=== PATIENT | female | born 1975 | race Hispanic/Latino ===

== ENCOUNTER 2017-05-17 10:12 | Emergency (ER) | payer MEDICAID ==
[2017-05-17 10:12] VITALS: BMI 19.4
[2017-05-17 10:40] VITALS: TEMP 98.2
[2017-05-17] MEDS ORDERED: Albuterol-Ipratrop 3 mg / 0.5 (3 ml) UD IH STA ×3 (11:12→12:08)
--- NOTE | 2017-05-17 11:17 | ED PDOC ---
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 Patient reports feeling weak shortness of breath and coughing up green phlegm. Patient also reports to have chest tightness and wheezing associated with shortness of breath. The SOB is worse at night and patient uses home nebulizer which provides symptomatic relief. Patient was last hospitalized in November 2016 for asthma exacerbation and was intubated once in 2013. Patient decided to come to the ED today due to intermittent shortness of breath. Patient denies having headache, fever, chills, chest pain, nausea, vomiting, diarrhea, urinary symptoms, or recent travels. (Rica Hodgson) Past Medical History - Provider Review Nursing Documentation Reviewed: Yes - Infectious Disease Hx of Infectious Diseases: None - Tetanus Immunization Tetanus Immunization: Unknown - Cardiac Hx Cardiac Disorders: No - Pulmonary Hx Asthma: Yes Hx Chronic Obstructive Pulmonary Disease (COPD): Yes - Neurological Hx Neurological Disorder: No - HEENT Hx HEENT Disorder: No - Renal Hx Renal Disorder: No - Endocrine/Metabolic Hx Endocrine Disorders: No - Hematological/Oncological Hx Blood Disorders: No - Integumentary Hx Dermatological Disorder: No - Musculoskeletal/Rheumatological Hx Musculoskeletal Disorders: No - Gastrointestinal Hx Gastrointestinal Disorders: No - Genitourinary/Gynecological Hx Genitourinary Disorders: No - Psychiatric Hx Psychophysiologic Disorder: No Hx Substance Use: Yes - Past Surgical History Past Surgical History: Unable to Obtain - Surgical History Hx Tonsillectomy: Yes Hx Tubal Ligation: Yes - Suicidal Assessment Feels Threatened In Home Enviroment: No Family/Social History - Physician Review Nursing Documentation Reviewed: Yes Family/Social History: Unknown Family HX Smoking Status: Light Smoker < 10 Cigarettes Daily Hx Alcohol Use: No Hx Substance Use: Yes Substance used: Herion two days ago Allergies/Home Meds Allergies/Adverse Reactions: Allergies azithromycin Allergy (Verified 05/17/17 10:40) RASH Penicillins Allergy (Verified 05/17/17 10:40) REDNESS Home Medications: Home Meds Medication Instructions Recorded Confirmed Methadone 85 mg PO DAILY 09/24/16 11/21/16 Review of Systems - Physician Review All systems were reviewed & negative as marked: Yes - Review of Systems Constitutional: Normal. absent: Fatigue, Fevers Eyes: Normal. absent: Vision Changes, Photophobia ENT: Normal. absent: Hearing Changes Respiratory: SOB, Cough, Sputum, Wheezing Cardiovascular: Normal. absent: Chest Pain, Palpitations, Syncope Gastrointestinal: Normal. absent: Abdominal Pain, Constipation, Diarrhea, Nausea, Vomiting Musculoskeletal: Normal. absent: Back Pain, Neck Pain Skin: Normal. absent: Rash, Pruritis, Skin Lesions Neurological: Normal. absent: Headache, Dizziness Endocrine: Normal. absent: Diaphoresis, Polyuria Hemo/Lymphatic: Normal Psychiatric: Normal. absent: Anxiety, Depression Physical Exam Vital Signs Reviewed: Yes Temperature: Afebrile Blood Pressure: Normal Pulse: Regular Respiratory Rate: Normal Appearance: Positive for: Well-Appearing, Non-Toxic, Comfortable Pain Distress: None Mental Status: Positive for: Alert and Oriented X 3 - Systems Exam Head: Present: Atraumatic, Normocephalic Pupils: Present: PERRL Extroacular Muscles: Present: EOMI Conjunctiva: Present: Normal Mouth: Present: Moist Mucous Membranes Neck: Present: Normal Range of Motion Respiratory/Chest: Present: Wheezes (bilateral upper lung de leon). No: Respiratory Distress, Accessory Muscle Use Cardiovascular: Present: Regular Rate and Rhythm, Normal S1, S2. No: Murmurs Abdomen: Present: Normal Bowel Sounds. No: Tenderness, Distention, Peritoneal Signs Back: Present: Normal Inspection Upper Extremity: Present: Normal Inspection, NORMAL PULSES, Neurovascularly Intact. No: Cyanosis, Edema Lower Extremity: Present: Normal Inspection, NORMAL PULSES, Neurovascularly Intact. No: Edema Neurological: Present: GCS=15, CN II-XII Intact, Speech Normal Skin: Present: Warm, Dry, Normal Color. No: Rashes Psychiatric: Present: Alert, Oriented x 3, Normal Insight, Normal Concentration Medical Decision Making Re-evaluation Time: 13:06 Reassessment Condition: Improved ED Course and Treatment: 05/17/17 12:06 -Duoneb -Solu-medrol -CXR -CBC, CMP DDx: Asthma exacerbation, bronchitis, PNA 05/17/17 11:30 CXR revealed no active disease 05/17/17 13:06 Patient finished 2nd duoneb treatment. Denies shortness of breath, wheezing, chest tightness or palpitations. 05/17/17 13:16 41 year old female with history of asthma presents with shortness of breath was treated with solu-medrol and duonebs. Patient's symptoms resolved after treatments. Labs and CXR reviewed. Patient was instructed to quit smoking and will be discharged on oral prednisone. (Rica Hodgson) Seen and examined with resident. 41 year old F c Past medical history asthma p/ w shortness of breath similar to asthma that began with cold like symptoms. Wheezing diffusely on exam, no respiratory distress. (Kin Avalos) - Lab Interpretations Lab Results: 05/17/17 11:30 05/17/17 11:30 Lab Results 05/17/17 11:30: Sodium 139, Potassium 4.6, Chloride 106, Carbon Dioxide 22, Anion Gap 16, BUN 15, Creatinine 0.8, Est GFR ( Amer) > 60, Est GFR (Non- Af Amer) > 60, Random Glucose 76, Calcium 9.5, Total Bilirubin 0.6, AST 44 H, ALT 60 H, Alkaline Phosphatase 78, Total Protein 8.4 H, Albumin 4.5, Globulin 3.9, Albumin/Globulin Ratio 1.2 05/17/17 11:30: WBC 5.2, RBC 4.66, Hgb 13.5, Hct 39.3, MCV 84.3, MCH 29.0, MCHC 34.4, RDW 13.9, Plt Count 205, MPV 10.9, Gran % 64.4, Lymph % (Auto) 23.8, [place] % (Auto) 5.8, Eos % (Auto) 5.6 H, Baso % (Auto) 0.4, Gran # 3.32, Lymph # 1.2, [place] # 0.3, Eos # 0.3, Baso # 0.02 - RAD Interpretation Radiology Orders: 05/17/17 11:23 CHEST TWO VIEWS (PA/LAT) [RAD] Stat - Medication Orders Current Medication Orders: Discontinued Medications Albuterol/Ipratropium (Duoneb 3 Mg/0.5 Mg (3 Ml) Ud) 3 ml IH STAT STA Stop: 05/17/17 11:13 Last Admin: 05/17/17 11:32 Dose: 3 ml Albuterol/Ipratropium (Duoneb 3 Mg/0.5 Mg (3 Ml) Ud) 3 ml IH STAT STA Stop: 05/17/17 12:09 Last Admin: 05/17/17 12:10 Dose: 3 ml Albuterol/Ipratropium (Duoneb 3 Mg/0.5 Mg (3 Ml) Ud) 3 ml IH STAT STA Stop: 05/17/17 12:09 Last Admin: 05/17/17 12:22 Dose: 3 ml Methylprednisolone (Solu-Medrol) 125 mg IVP STAT STA Stop: 05/17/17 11:14 Last Admin: 05/17/17 11:32 Dose: 125 mg - PA / PATROL LADY / Resident Statement /DO has reviewed & agrees with the documentation as recorded. MD/ has examined the patient and agrees with the treatment plan. Disposition/Present on Arrival - Present on Arrival Any Indicators Present on Arrival: No History of DVT/PE: No History of Uncontrolled Diabetes: No Urinary Catheter: No History of Decub. Ulcer: No History Surgical Site Infection Following: None - Disposition Have Diagnosis and Disposition been Completed?: Yes Disposition Time: 13:09 Patient Plan: Discharge - Disposition Diagnosis: Asthma exacerbation Disposition: HOME/ ROUTINE Patient Problems: Current Active Problems Problem Status Onset Asthma exacerbation Acute Condition: GOOD Discharge Instructions (ExitCare): Asthma (ED) Additional Instructions: Arelis Meehan, thank you for letting us take care of you today. Your provider was Dr. Avalos. You were treated for asthma exacerbation. The emergency medical care you received today was directed at your acute symptoms. If you were prescribed any medication, please fill it and take as directed. It may take several days for your symptoms to resolve. Return to the Emergency Department if your symptoms worsen, do not improve, or if you have any other problems. Please contact your doctor or call one of the physicians/clinics you have been referred to that are listed on the Patient Visit Information form that is included in your discharge packet. Bring any paperwork you were given at discharge with you along with any medications you are taking to your follow up visit. Our treatment cannot replace ongoing medical care by a primary care provider (PCP) outside of the emergency department. Thank you for allowing the [facility] team to be part of your care today. Prescriptions: predniSONE [Prednisone] 60 mg PO DAILY 5 Days Referrals: PCP,NO [Primary Care Provider] - Follow up with primary Forms: WORK NOTE
--- NOTE | 2017-05-17 11:25 | ED PDOC ---
Arrival/HPI - General Chief Complaint: Cough, Cold, Congestion Time Seen by Provider: 05/17/17 10:39 Historian: Patient Past Medical History - Infectious Disease Hx of Infectious Diseases: None - Tetanus Immunization Tetanus Immunization: Unknown - Cardiac Hx Cardiac Disorders: No - Pulmonary Hx Asthma: Yes Hx Chronic Obstructive Pulmonary Disease (COPD): Yes - Neurological Hx Neurological Disorder: No - HEENT Hx HEENT Disorder: No - Renal Hx Renal Disorder: No - Endocrine/Metabolic Hx Endocrine Disorders: No - Hematological/Oncological Hx Blood Disorders: No - Integumentary Hx Dermatological Disorder: No - Musculoskeletal/Rheumatological Hx Musculoskeletal Disorders: No - Gastrointestinal Hx Gastrointestinal Disorders: No - Genitourinary/Gynecological Hx Genitourinary Disorders: No - Psychiatric Hx Psychophysiologic Disorder: No Hx Substance Use: Yes - Past Surgical History Past Surgical History: Unable to Obtain - Surgical History Hx Tonsillectomy: Yes Hx Tubal Ligation: Yes - Suicidal Assessment Feels Threatened In Home Enviroment: No Family/Social History Smoking Status: Light Smoker < 10 Cigarettes Daily Hx Alcohol Use: No Hx Substance Use: Yes Substance used: Herion two days ago Allergies/Home Meds Allergies/Adverse Reactions: Allergies azithromycin Allergy (Verified 05/17/17 10:40) RASH Penicillins Allergy (Verified 05/17/17 10:40) REDNESS Home Medications: Home Meds Medication Instructions Recorded Confirmed Methadone 85 mg PO DAILY 09/24/16 11/21/16 Physical Exam Vital Signs Temp Pulse Resp BP Pulse Ox 05/17/17 10:36 98.2 F 96 H 16 121/81 95 Medical Decision Making - RAD Interpretation Radiology Orders: 05/17/17 11:23 CHEST TWO VIEWS (PA/LAT) [RAD] Stat - Medication Orders Current Medication Orders: Discontinued Medications Albuterol/Ipratropium (Duoneb 3 Mg/0.5 Mg (3 Ml) Ud) 3 ml IH STAT STA Stop: 05/17/17 11:13 Methylprednisolone (Solu-Medrol) 125 mg IVP STAT STA Stop: 05/17/17 11:14 Disposition/Present on Arrival - Present on Arrival History of DVT/PE: No History of Uncontrolled Diabetes: No Urinary Catheter: No History of Decub. Ulcer: No History Surgical Site Infection Following: None - Disposition Referrals: PCP,NO [Primary Care Provider] - Follow up with primary
[2017-05-17 11:49] LABS: BASO # 0.02 K/mm3 (0.0-2.0); BASO % 0.4 % (0.0-3.0); EOS # 0.3 (0.0-0.7); EOS % 5.6 % (1.5-5.0); GRAN # 3.32 (1.4-6.5); GRAN % 64.4 % (50.0-68.0); HEMOGLOBIN 13.5 gm/dL (12.0-16.0); LYMPH # 1.2 (1.2-3.4); LYMPH % 23.8 % (22.0-35.0); MEAN CELL VOLUME 84.3 fL (80.0-105.0); MEAN CORPUSCULAR HGB CONC 34.4 g/dl (31.0-37.0); MEAN PLATELET VOLUME 10.9 fl (7.0-11.0); MONO # 0.3 (0.1-0.6); MONO % 5.8 % (1.0-6.0); PLATELET COUNT 205 10^3/uL (120.0-450.0); RBC 4.66 10^6/uL (3.5-6.1); RED CELL DISTRIBUTION WIDTH 13.9 % (11.5-14.5); WHITE BLOOD COUNT 5.2 10^3/ul (4.5-11.0)
[2017-05-17 11:59] LABS: ALB/GLOB RATIO 1.2 (1.1-1.8); ALBUMIN 4.5 g/dL (3.0-4.8); ALT/SGPT 60 U/L (7-56); AST/SGOT 44 U/L (15-39); BLOOD UREA NITROGEN 15 mg/dL (7-21); CALCIUM 9.5 mg/dL (8.4-10.5); GFR AFRICAN-AMERICAN > 60; GFR NON-AFRICAN AMERICAN > 60
--- NOTE | 2017-05-17 12:13 | RAD ---
HISTORY: shortness of breath COMPARISON: 11/21/2016 TECHNIQUE: Chest PA and lateral FINDINGS: LUNGS: No active pulmonary disease. PLEURA: No significant pleural effusion identified. No pneumothorax apparent. CARDIOVASCULAR: Normal. OSSEOUS STRUCTURES: No significant abnormalities. VISUALIZED UPPER ABDOMEN: Normal. OTHER FINDINGS: None. IMPRESSION: No active disease.
[2017-05-17 12:16] VITALS: RESP 18
[2017-05-17 13:48] VITALS: BP 122/68; PULSE 78; O2SAT 98
== END 2017-05-17 13:50 | disposition home or self-care (01) ==
LOC: ED 10:12
DX: J45.901 Unspecified asthma with (acute) exacerbation (principal); Z72.0 Tobacco use
CPT/HCPCS: 71020; 80053; 85025; 96374; 99283; J2930

== ENCOUNTER 2017-06-24 19:49 | Emergency (ER) | payer MEDICAID ==
[2017-06-24 19:50] VITALS: BMI 19.4
[2017-06-24 20:09] VITALS: TEMP 98.5
[2017-06-24] MEDS ORDERED: levoFLOXacin 750 mg in D5W 750 MG/150 ML BAG IVPB STA (20:22)
--- NOTE | 2017-06-24 20:26 | ED PDOC ---
Arrival/HPI <Adal Barrios - Last Filed: 06/24/17 22:03> - History of Present Illness Time/Duration: < week Symptom Onset: Gradual Symptom Course: Improving Context: Other <Nina Hewitt - Last Filed: 06/24/17 22:35> - General Chief Complaint: Upper Extremity Problem/Injury Time Seen by Provider: 06/24/17 19:55 - History of Present Illness Narrative History of Present Illness (Text): 06/24/17 20:21 61 year old female with past medical history of IVDA, asthma, hepatitis C presents for right arm anticubital fossa infection. Patient states that she injects heroin into the right antecubital fossa site. She noticed a raised area at site of injection about 5 days ago. Patient states that area is nontender. She denies having any F/C. Patient has injected in the same site even after she noticed that area was becoming raised. Patient states that some of the swelling decreased. Her last use of IVD was earlier today. patient denie shaving any CP, SOB, abd pain, hand pain. (Nina Hewitt) Past Medical History - Provider Review Nursing Documentation Reviewed: Yes - Travel History Have you recently traveled outside [place] w/in the past 3 mons?: No - Infectious Disease Hx of Infectious Diseases: None - Tetanus Immunization Tetanus Immunization: Unknown - Reproductive Menopause: No - Cardiac Hx Cardiac Disorders: No - Pulmonary Hx Respiratory Disorders: Yes Hx Asthma: Yes Hx Chronic Obstructive Pulmonary Disease (COPD): Yes - Neurological Hx Neurological Disorder: No - HEENT Hx HEENT Disorder: No - Renal Hx Renal Disorder: No - Endocrine/Metabolic Hx Endocrine Disorders: No - Hematological/Oncological Hx Blood Disorders: Yes Hx Hepatitis C: Yes - Integumentary Hx Dermatological Disorder: No - Musculoskeletal/Rheumatological Hx Musculoskeletal Disorders: No - Gastrointestinal Hx Gastrointestinal Disorders: No - Genitourinary/Gynecological Hx Genitourinary Disorders: No - Psychiatric Hx Psychophysiologic Disorder: No Hx Substance Use: Yes - Past Surgical History Past Surgical History: Unable to Obtain - Surgical History Hx Tonsillectomy: Yes Hx Tubal Ligation: Yes - Anesthesia Hx Anesthesia: Yes Hx Anesthesia Reactions: No Hx Malignant Hyperthermia: No - Suicidal Assessment Feels Threatened In Home Enviroment: No <Nina Hewitt - Last Filed: 06/24/17 22:35> Family/Social History - Physician Review Nursing Documentation Reviewed: Yes Family/Social History: Unknown Family HX Smoking Status: Heavy Smoker > 10 Cigarettes Daily Hx Alcohol Use: No Hx Substance Use: Yes Substance used: Heroin & Cocaine today; IV drug abuser <Nina eHwitt - Last Filed: 06/24/17 22:35> Allergies/Home Meds <SophieAdal - Last Filed: 06/24/17 22:03> <Nina Hewitt - Last Filed: 06/24/17 22:35> Allergies/Adverse Reactions: Allergies azithromycin Allergy (Verified 05/17/17 10:40) RASH Penicillins Allergy (Verified 05/17/17 10:40) REDNESS Home Medications: Home Meds Medication Instructions Recorded Confirmed Methadone 85 mg PO DAILY 09/24/16 11/21/16 Review of Systems - Review of Systems Constitutional: Normal. absent: Fatigue, Fevers, Night Sweats Eyes: Normal. absent: Vision Changes, Eye Pain ENT: Normal. absent: Hearing Changes, Sore Throat, Rhinorrhea, Sinus Congestion Respiratory: Normal. absent: SOB, Cough, Sputum, Wheezing Cardiovascular: Normal. absent: Chest Pain, Palpitations, Edema, Calf Pain Gastrointestinal: Normal. absent: Abdominal Pain, Constipation, Diarrhea, Nausea, Vomiting Genitourinary Female: Normal. absent: Dysuria, Frequency, Hematuria Musculoskeletal: Normal. absent: Arthralgias, Back Pain, Neck Pain Skin: Other (raised area in right AC ). absent: Rash, Pruritis, Skin Lesions, Laceration Neurological: Normal. absent: Headache, Dizziness Endocrine: Normal. absent: Diaphoresis Hemo/Lymphatic: Normal. absent: Adenopathy, Easy Bleeding <Nina Hewitt - Last Filed: 06/24/17 22:35> Physical Exam Temperature: Afebrile Blood Pressure: Normal Pulse: Tachycardic Respiratory Rate: Normal Appearance: Positive for: Well-Appearing, Non-Toxic, Comfortable Pain Distress: None Mental Status: Positive for: Alert and Oriented X 3 - Systems Exam Head: Present: Atraumatic, Normocephalic Extroacular Muscles: Present: EOMI Mouth: Present: Moist Mucous Membranes. No: Dry Respiratory/Chest: Present: Clear to Auscultation, Good Air Exchange. No: Respiratory Distress, Accessory Muscle Use, Wheezes, Rales, Rhonchi Cardiovascular: Present: Regular Rate and Rhythm, Normal S1, S2. No: Murmurs, Rub, Gallop, Muffled Abdomen: Present: Normal Bowel Sounds. No: Tenderness, Distention, Peritoneal Signs, Guarding Upper Extremity: Present: Normal ROM, NORMAL PULSES. No: Cyanosis, Edema Lower Extremity: No: Edema, CALF TENDERNESS Skin: Present: Warm, Dry, Normal Color, Other (right arm AC fossa has small raised, indurated area with track nahomy noted. no erythema, nontender. ). No: Rashes Psychiatric: Present: Alert, Oriented x 3, Normal Insight, Normal Concentration <KarjennifferNina - Last Filed: 06/24/17 22:35> Vital Signs Temp Pulse Resp BP Pulse Ox 06/24/17 22:30 96 H 16 110/71 95 06/24/17 20:03 98.5 F 129 H 19 133/84 98 Medical Decision Making - EKG Interpretation Interpreted by ED Physician: Yes Type: 12 lead EKG <Adal Barrois - Last Filed: 06/24/17 22:03> - Lab Interpretations I have reviewed the lab results: Yes Interpretation: All labs normal - EKG Interpretation Interpreted by ED Physician: Yes Type: 12 lead EKG <Amn Marcelinaa - Last Filed: 06/24/17 22:35> ED Course and Treatment: Impression: Pt seen and evaluated with medical territory manager. Pt, whose past medical history includes IVDA, asthma, and hepatitis C, presented for right antecubital fossa. Pt regularly injects heroin at the site. Aware and agree with HPI, clinical findings, plan, and management. Plan: -- EKG -- Labs -- Levaquin -- Reassess and disposition (Adal Barrios) 06/24/17 20:29 41 y/o F presents for right AC fossa swelling. Patient is noted to be tachy in ED. Patient is afebrile. Will check CBC, BMP, EKG Patient will receive 1 dose of levaquin IV 750 mg 06/24/17 22:06 Normal WBC count. Patient will be given referral for general surgery for follow up. (KarimNina) - Lab Interpretations Narrative Lab Interpretation (Text): 06/24/17 22:06 normal WBC count (Karim,Nina) Lab Results: 06/24/17 20:35 06/24/17 20:35 Lab Results 06/24/17 20:35: Sodium 138, Potassium 3.5 L, Chloride 105, Carbon Dioxide 22, Anion Gap 15, BUN 12, Creatinine 0.8, Est GFR ( Amer) > 60, Est GFR (Non- Af Amer) > 60, Random Glucose 115 H, Calcium 9.1 06/24/17 20:35: WBC 4.4 L, RBC 4.50, Hgb 13.0, Hct 37.7, MCV 83.8, MCH 28.9, MCHC 34.5, RDW 13.8, Plt Count 226, MPV 10.8 - EKG Interpretation EKG Interpretation (Text): 06/24/17 20:36 NSR with HR of 107. No ST changes, normal intervals and normal axis. 06/24/17 20:39 No changes noted from EKG from 09/2014 (Nina Hewitt) - Medication Orders Current Medication Orders: Discontinued Medications Levofloxacin/Dextrose (Levaquin 750mg) 750 mg in 150 mls @ 100 mls/hr IVPB STAT STA Stop: 06/24/17 21:51 Last Admin: 06/24/17 20:49 Dose: 100 mls/hr Potassium Chloride (K-Dur 20 Meq Er Tab) 20 meq PO STAT STA Stop: 06/24/17 22:06 Last Admin: 06/24/17 22:21 Dose: 20 meq - PA / WORKPLACE RELATIONS ADVISER / Resident Statement MUSA has reviewed & agrees with the documentation as recorded. MUSA has examined the patient and agrees with the treatment plan. <Adal Barrios - Last Filed: 06/24/17 22:03> Disposition/Present on Arrival <Adal Barrios - Last Filed: 06/24/17 22:03> - Present on Arrival Any Indicators Present on Arrival: No History of DVT/PE: No History of Uncontrolled Diabetes: No Urinary Catheter: No History of Decub. Ulcer: No History Surgical Site Infection Following: Obstetrical/Gynecological Surgery - Disposition Have Diagnosis and Disposition been Completed?: Yes Disposition Time: 22:05 Patient Plan: Discharge <Nina Hewitt - Last Filed: 06/24/17 22:35> - Disposition Diagnosis: Skin swelling Disposition: HOME/ ROUTINE Patient Problems: Current Active Problems Problem Status Onset Skin swelling Acute Condition: GOOD Additional Instructions: Arelis Meehan, thank you for letting us take care of you today. Your provider was Dr. Nina Hewitt. You were treated for skin swelling. The emergency medical care you received today was directed at your acute symptoms. If you were prescribed any medication, please fill it and take as directed. It may take several days for your symptoms to resolve. Return to the Emergency Department if your symptoms worsen, do not improve, or if you have any other problems. Please contact your doctor or call one of the physicians/clinics you have been referred to that are listed on the Patient Visit Information form that is included in your discharge packet. Bring any paperwork you were given at discharge with you along with any medications you are taking to your follow up visit. Our treatment cannot replace ongoing medical care by a primary care provider (PCP) outside of the emergency department. Thank you for allowing the [facility] team to be part of your care today. If you had an X-Ray or CT scan: A Radiologist will review the ED reading if any change in treatment is needed we will contact you. If you had a blood, urine, or wound culture: It will take several days for the results, if any change in treatment is needed we will contact you. If you had an STI test: It will take 48 hours for the results. Please call after 1 week if you have not heard back. Prescriptions: Levofloxacin [Levaquin] 500 mg PO DAILY #7 tablet Referrals: Chasidy Macdonald MD [Staff Provider] - Follow up with primary Forms: [employer] (Czech)
[2017-06-24 20:58] LABS: MEAN CELL VOLUME 83.8 fl (80.0-105.0); MEAN CORPUSCULAR HEMOGLOBIN 28.9 pg (25.0-35.0); MEAN CORPUSCULAR HGB CONC 34.5 g/dl (31.0-37.0); MEAN PLATELET VOLUME 10.8 fl (7.0-11.0); RBC 4.5 10^6/uL (3.5-6.1); RED CELL DISTRIBUTION WIDTH 13.8 % (11.5-14.5); WHITE BLOOD COUNT 4.4 10^3/ul (4.5-11.0)
[2017-06-24 21:44] LABS: BLOOD UREA NITROGEN 12 mg/dL (7-21); CALCIUM 9.1 mg/dL (8.4-10.5); GFR AFRICAN-AMERICAN > 60; GFR NON-AFRICAN AMERICAN > 60
[2017-06-24] MEDS ORDERED: Potassium Chloride 20 mEq ER Tab PO STA (22:05)
[2017-06-24 22:31] VITALS: BP 110/71; PULSE 96; RESP 16; O2SAT 95
--- NOTE | 2017-06-25 13:59 | CARD ---
APPROVED REPORT EKG Measurement Heart [id number] <Conclusion> Sinus tachycardia Possible Left atrial enlargement Incomplete right bundle branch block Borderline ECG
== END 2017-06-24 22:32 | disposition home or self-care (01) ==
LOC: ED 19:49
DX: M79.89 Other specified soft tissue disorders (principal); F19.10 Other psychoactive substance abuse, uncomplicated; J45.909 Unspecified asthma, uncomplicated; F17.210 Nicotine dependence, cigarettes, uncomplicated

== ENCOUNTER 2017-10-06 02:35 | Emergency (ER) | payer MEDICAID ==
[2017-10-06 02:35] VITALS: BMI 19.4
[2017-10-06 02:52] VITALS: TEMP 99.6
--- NOTE | 2017-10-06 02:53 | ED PDOC ---
Arrival/HPI - General Chief Complaint: Back Pain Time Seen by Provider: 10/06/17 02:42 Historian: Patient - History of Present Illness Narrative History of Present Illness (Text): 10/06/17 02:45 41 year old female, whose past medical history includes, IVDA, asthma, and hepatitis C, presents to the emergency department complaining of right rib pain associated with chest pain on exertion and trouble breathing for the past 4 days. Patient describes the pain as a sharp pain that worsens when laying down and has relief when sitting up. She reports vomiting on the first day. Patient admits to smoking and use of heroine (last use 10 hours ago), but denies any injuries, fever, chills, cough, sinus congestion, nausea, diarrhea, urinary symptoms, edema, back pain, neck pain, headache, dizziness, or any other complaints. Time/Duration: Other (4 days ) Symptom Onset: Gradual Symptom Course: Worsening Quality: Stabbing Activities at Onset: Light Context: Home Past Medical History - Provider Review Nursing Documentation Reviewed: Yes - Infectious Disease Hx of Infectious Diseases: None - Tetanus Immunization Tetanus Immunization: Unknown - Cardiac Hx Cardiac Disorders: No - Pulmonary Hx Respiratory Disorders: Yes Hx Asthma: Yes Hx Chronic Obstructive Pulmonary Disease (COPD): Yes - Neurological Hx Neurological Disorder: No - HEENT Hx HEENT Disorder: No - Renal Hx Renal Disorder: No - Endocrine/Metabolic Hx Endocrine Disorders: No - Hematological/Oncological Hx Blood Disorders: Yes Hx Hepatitis C: Yes - Integumentary Hx Dermatological Disorder: No - Musculoskeletal/Rheumatological Hx Musculoskeletal Disorders: No - Gastrointestinal Hx Gastrointestinal Disorders: No - Genitourinary/Gynecological Hx Genitourinary Disorders: No - Psychiatric Hx Psychophysiologic Disorder: No Hx Substance Use: Yes - Past Surgical History Past Surgical History: Unable to Obtain - Surgical History Hx Tonsillectomy: Yes Hx Tubal Ligation: Yes - Anesthesia Hx Anesthesia: Yes Hx Anesthesia Reactions: No Hx Malignant Hyperthermia: No - Suicidal Assessment Feels Threatened In Home Enviroment: No Family/Social History - Physician Review Nursing Documentation Reviewed: Yes Family/Social History: No Known Family HX Smoking Status: Light Smoker < 10 Cigarettes Daily Hx Alcohol Use: No Hx Substance Use: Yes Substance used: Heroin.last used at 1700 10/05/2017; IV drug abuser Allergies/Home Meds Allergies/Adverse Reactions: Allergies azithromycin Allergy (Verified 10/06/17 02:45) RASH Penicillins Allergy (Verified 10/06/17 02:45) REDNESS Home Medications: Home Meds Medication Instructions Recorded Confirmed Albuterol HFA [Ventolin HFA 90 2 puff IH [id number] 10/06/17 10/06/17 mcg/actuation (8 g)] Review of Systems - Physician Review All systems were reviewed & negative as marked: Yes - Review of Systems Constitutional: absent: Fevers, Other (Chills) ENT: absent: Sinus Congestion Respiratory: absent: Cough Cardiovascular: Chest Pain (chest pain on exeration), Other (trouble breathing) Gastrointestinal: Vomiting. absent: Diarrhea, Nausea Genitourinary Female: absent: Dysuria, Frequency, Hematuria Musculoskeletal: absent: Back Pain, Neck Pain, Other (edema) Neurological: absent: Headache, Dizziness Physical Exam Vital Signs Temp Pulse Resp BP Pulse Ox 10/06/17 04:31 97 H 16 104/60 97 10/06/17 02:51 99.6 F 10/06/17 02:42 98.9 F 105 H 18 111/59 L 100 10/06/17 02:40 98.9 F Temperature: Afebrile Blood Pressure: Normal Pulse: Tachycardic Respiratory Rate: Normal Appearance: Positive for: Well-Appearing, Non-Toxic Pain Distress: Mild Mental Status: Positive for: Alert and Oriented X 3 - Systems Exam Head: Present: Atraumatic, Normocephalic Pupils: Present: PERRL Conjunctiva: Present: Normal Mouth: Present: Dry Pharnyx: Present: Normal. No: ERYTHEMA, EXUDATE Neck: Present: Normal Range of Motion Respiratory/Chest: Present: Clear to Auscultation, Good Air Exchange. No: Respiratory Distress, Accessory Muscle Use Cardiovascular: Present: Regular Rate and Rhythm, Normal S1, S2. No: Murmurs Abdomen: Present: Normal Bowel Sounds. No: Tenderness, Distention, Peritoneal Signs Back: Present: Normal Inspection Upper Extremity: Present: Tenderness (Mild tenderness to palpation on lower anterior ribs). No: Cyanosis, Edema Lower Extremity: Present: Normal Inspection. No: Edema Neurological: Present: GCS=15, CN II-XII Intact, Speech Normal Skin: Present: Warm, Dry, Normal Color. No: Rashes Psychiatric: Present: Alert, Oriented x 3, Normal Insight, Normal Concentration Medical Decision Making ED Course and Treatment: 10/06/17 02:45 Impression: 41 year old female presents complaining of right sided rib pain associated with chest pain on exertion and trouble breathing. Patient hx of IVDA and asthma. Plan: -- EKG -- Labs -- Chest X-ray 2 Views -- Urinalysis -- Reassess and disposition Prior Visits: Notes and results from previous visits were reviewed. Patient was last seen in the emergency department on 05/17/17 presents complaining of shortness of breath and not feeling well. Progress Notes: EKG shows NSR at 95 BPM with normal intervals, normal axis, and no ST/T changes. Interpreted by me. 10/06/17 03:58 CXR 2 Views Impression: As read by me, elevated hemidiaphragm with RLLL inf vs atx. 10/06/17 06:41 CT result: IMPRESSION: 1. No definite central pulmonary embolism. Limited evaluation for distal pulmonary emboli. 2. Probable RML pneumonia in proper clinical setting. Followup to resolution to exclude underlying pathology. 3. Incidental/non-acute findings are described above Patient with noted history. CT results noted with no PE and EKG is normal. She is afebrile with unremarkable labs (except for the elevated d-dimer) and feels better after toradol with class I risk by Port score, given the possible RML pneumonia. Considering her IVDA use, there is no evidence of septic emboli , and the patient may be discharged on oral antibiotics - will d/c on levaquin for pneumonia and macrobid for UTI. The patient has a pmd with whom she can follow up. - Lab Interpretations Lab Results: 10/06/17 03:10 10/06/17 03:10 Lab Results 10/06/17 03:15: Urine Opiates Screen Positive H, Urine Methadone Screen Negative , Ur Barbiturates Screen Negative, Ur Phencyclidine Scrn Negative, Ur Amphetamines Screen Negative, U Benzodiazepines Scrn Positive, U Oth Cocaine Metabols Positive H, U Cannabinoids Screen Negative 10/06/17 03:15: Urine Color Yellow, Urine Appearance Sl cloudy, Urine pH 6.0, Ur Specific [place] >= 1.030, Urine Protein Trace H, Urine Glucose (UA) Negative , Urine Ketones Trace H, Urine Blood Negative, Urine Nitrate Negative, Urine Bilirubin Negative, Urine Urobilinogen 0.2, Ur Leukocyte Esterase Small H, Urine RBC 0 - 2, Urine WBC 15 - 20, Ur Epithelial Cells 0 - 2, Urine Bacteria Mod 10/06/17 03:10: Sodium 143, Potassium 3.9, Chloride 107, Carbon Dioxide 28, Anion Gap 12, BUN 20, Creatinine 0.9, Est GFR ( Amer) > 60, Est GFR (Non- Af Amer) > 60, Random Glucose 123 H, Calcium 8.9, Magnesium 1.8, Total Bilirubin 0.4, AST 37 H, ALT 36, Alkaline Phosphatase 78, Lactate Dehydrogenase 490, Total Creatine Kinase 42, Troponin I 0.01, NT-Pro-B Natriuret Pep 525 H, Total Protein 7.3, Albumin 3.6, Globulin 3.7, Albumin/Globulin Ratio 1.0 L, Lipase 176 10/06/17 03:10: PT 12.4, INR 1.13 H, APTT 32.0, D-Dimer, Quantitative 1537 H 10/06/17 03:10: WBC 5.9 D, RBC 3.81, Hgb 10.7 L D, Hct 32.7 L, MCV 85.8, MCH 28.1, MCHC 32.7, RDW 14.8 H, Plt Count 256, MPV 10.4, Gran % 54.3, Lymph % (Auto ) 32.8, Gordon % (Auto) 8.3 H, Eos % (Auto) 4.1, Baso % (Auto) 0.5, Gran # 3.22, Lymph # 1.9, Gordon # 0.5, Eos # 0.2, Baso # 0.03 I have reviewed the lab results: Yes - RAD Interpretation Radiology Orders: 10/06/17 02:48 CHEST TWO VIEWS (PA/LAT) [RAD] Stat 10/06/17 05:12 ANGIO CHEST PE PROTOCOL [CT] Stat - EKG Interpretation EKG Interpretation (Text): 10/06/17 06:45 NSR @ 95; no ST/T changes; normal intervals; normal axis. Interpreted by ED Physician: Yes Type: 12 lead EKG - Medication Orders Current Medication Orders: Discontinued Medications Diazepam (Valium) 5 mg PO ONCE ONE Stop: 10/06/17 03:23 Last Admin: 10/06/17 03:49 Dose: 5 mg Sodium Chloride (Sodium Chloride 0.9%) 1,000 mls @ 999 mls/hr IV .Q1H1M STA Stop: 10/06/17 06:12 Last Admin: 10/06/17 06:04 Dose: 999 mls/hr eMAR Start Stop Document 10/06/17 06:04 HI (Rec: 10/06/17 06:04 HI [id number]) Intravenous Solution Start Date 10/06/17 Start Time 06:04 Ketorolac Tromethamine (Toradol) 30 mg IVP STAT STA Stop: 10/06/17 03:23 Last Admin: 10/06/17 03:48 Dose: 30 mg MAR Pain Assessment Document 10/06/17 03:48 HI (Rec: 10/06/17 03:49 HI [id number]) Pain Reassessment Is this a pain reassessment? No Sleep Is patient sleeping during reassessment? No Presence of Pain Presence of Pain Yes IVP Administration Document 10/06/17 03:48 HI (Rec: 10/06/17 03:49 HI [id number]) Charges for Administration # of IVP Administrations 1 Re-Assess: MAR Pain Assessment Document 10/06/17 04:48 HI (Rec: 10/06/17 06:04 HI [id number]) Pain Reassessment Is this a pain reassessment? Yes Sleep Is patient sleeping during reassessment? Yes Levofloxacin/Dextrose (Levaquin 750mg) 750 mg IVPB ONCE STA Stop: 10/06/17 06:32 - Scribe Statement The provider has reviewed the documentation as recorded by the Maegan Mckeon Provider Scribe Attestation: All medical record entries made by the Maegan were at my direction and personally dictated by me. I have reviewed the chart and agree that the record accurately reflects my personal performance of the history, physical exam, medical decision making, and the department course for this patient. I have also personally directed, reviewed, and agree with the discharge instructions and disposition. Disposition/Present on Arrival - Present on Arrival Any Indicators Present on Arrival: No History of DVT/PE: No History of Uncontrolled Diabetes: No Urinary Catheter: No History of Decub. Ulcer: No History Surgical Site Infection Following: Obstetrical/Gynecological Surgery - Disposition Have Diagnosis and Disposition been Completed?: Yes Diagnosis: Pneumonia, Urinary tract infection Disposition: HOME/ ROUTINE Disposition Time: 06:50 Patient Plan: Discharge Condition: GOOD Additional Instructions: Stop drug use. Drink plenty of fluids. Take the medications as prescribed. Recommend eating plenty of yogurt or using probiotics while on the antibiotics. Follow up with your primary care doctor. Return to the emergency department if any new concerning symptoms. Prescriptions: Levofloxacin [Levaquin] 1 tab PO DAILY #10 tablet Naproxen [Naprosyn] 500 mg PO BID PRN #20 tab PRN Reason: Pain Nitrofurantoin Macrocrystals [Macrobid] 100 mg PO BID #14 cap Forms: [facility] [facility] (Swazi)
[2017-10-06 03:27] LABS: URINE BILIRUBIN NEGATIVE (NEGATIVE); URINE BLOOD NEGATIVE (NEGATIVE); URINE GLUCOSE (UA) NEGATIVE (NEGATIVE); URINE KETONE TRACE mg/dL (NEGATIVE); URINE LEUKOCYTE ESTERASE SMALL Leu/uL (NEGATIVE); URINE PROTEIN TRACE mg/dL (<30 mg/dL); URINE UROBILINOGEN 0.2 E.U./dL (<1 E.U./dL)
[2017-10-06 03:27] LABS: BASO # 0.03 K/mm3 (0.0-2.0); BASO % 0.5 % (0.0-3.0); EOS # 0.2 (0.0-0.7); EOS % 4.1 % (1.5-5.0); GRAN # 3.22 (1.4-6.5); GRAN % 54.3 % (50.0-68.0); HEMATOCRIT 32.7 % (36.0-48.0); LYMPH # 1.9 (1.2-3.4); LYMPH % 32.8 % (22.0-35.0); MEAN CELL VOLUME 85.8 fl (80.0-105.0); MEAN CORPUSCULAR HEMOGLOBIN 28.1 pg (25.0-35.0); MEAN CORPUSCULAR HGB CONC 32.7 g/dl (31.0-37.0); MEAN PLATELET VOLUME 10.4 fl (7.0-11.0); MONO # 0.5 (0.1-0.6); MONO % 8.3 % (1.0-6.0); RED CELL DISTRIBUTION WIDTH 14.8 % (11.5-14.5); WHITE BLOOD COUNT 5.9 10^3/ul (4.5-11.0)
[2017-10-06 03:31] LABS: URINE APPEARANCE SL CLOUDY (CLEAR); URINE COLOR YELLOW (YELLOW)
[2017-10-06 03:44] LABS: ALKALINE PHOSPHATASE 78 U/L (38-126); ALT/SGPT 36 U/L (7-56); AST/SGOT 37 U/L (14-36); BILIRUBIN,TOTAL 0.4 mg/dL (0.2-1.3); BLOOD UREA NITROGEN 20 mg/dL (7-21); CALCIUM 8.9 mg/dL (8.4-10.5); CARBON DIOXIDE 28 mmol/L (21-33); CHLORIDE 107 mmol/L (98-107); GFR AFRICAN-AMERICAN > 60; GLUCOSE,RANDOM 123 mg/dL (70-110); LIPASE 176 U/L (23-300); MAGNESIUM 1.8 mg/dL (1.7-2.2); POTASSIUM 3.9 mmol/L (3.6-5.0); SODIUM 143 mmol/L (132-148); TOTAL PROTEIN 7.3 g/dL (5.8-8.3)
[2017-10-06 03:48] LABS: TROPONIN I 0.01 ng/mL
[2017-10-06 03:53] LABS: INR 1.13 (0.93-1.08)
[2017-10-06 04:00] LABS: URINE RBC 0 - 2 /hpf (0-2)
[2017-10-06 04:01] LABS: URINE BACTERIA MOD (NEG); URINE EPITHELIAL CELLS 0 - 2 /hpf (0-5); URINE WBC 15 - 20 /hpf (0-6)
[2017-10-06] MEDS ORDERED: Sodium Chloride 0.9% 1,000 ML IV STA (05:12)
[2017-10-06] MEDS ORDERED: Iodixanol 320 MG/ML 100 ML BOTTLE IV ONE (05:16)
--- NOTE | 2017-10-06 06:08 | CT ---
EXAM: CT Angiography Chest With Intravenous Contrast CLINICAL HISTORY: 41 years old, female; Pain; Chest pain; Right-sided chest pain; Additional info: R side pleuritic chest pain - R/O pe TECHNIQUE: Axial computed tomographic angiography images of the chest with intravenous contrast using pulmonary embolism protocol. All CT scans at this facility use one or more dose reduction techniques, viz.: automated exposure control; ma/kV adjustment per patient size (including targeted exams where dose is matched to indication; i.e. head); or iterative reconstruction technique. MIP reconstructed images were created and reviewed. Coronal and sagittal reformatted images were created and reviewed. CONTRAST: 96 mL of VISI 320 administered intravenously. COMPARISON: CT - ANGIO CHEST PE PROTOCOL 2016-11-21 13:29 FINDINGS: Limitations: Motion artifact - moderate. Suboptimal timing of bolus. Pulmonary arteries: No definite filling defects within main, lobar branches. Suboptimal evaluation of segmental, subsegmental branches. Aorta: No aneurysm. No dissection. Lungs: Small consolidation periphery RIGHT middle lobe. Minimal atelectasis/scarring. Mild bullous changes within apices. Pleural space: Trace RIGHT pleural effusion. No pneumothorax. Heart: No cardiomegaly. No significant pericardial effusion. Bones/joints: No acute fracture. No dislocation. Soft tissues: Unremarkable. Lymph nodes: No pathologically enlarged lymph nodes. IMPRESSION: 1. No definite central pulmonary embolism. Limited evaluation for distal pulmonary emboli. 2. Probable RML pneumonia in proper clinical setting. Followup to resolution to exclude underlying pathology. 3. Incidental/non-acute findings are described above.
[2017-10-06] MEDS ORDERED: levoFLOXacin 750 mg in D5W 150 ML BAG IVPB STA (06:31)
[2017-10-06 08:28] VITALS: BP 110/86; PULSE 85; RESP 17; O2SAT 99
--- NOTE | 2017-10-06 09:01 | RAD ---
HISTORY: R side chest pain COMPARISON: 05/17/2017 TECHNIQUE: Chest PA and lateral FINDINGS: LUNGS: There is minimal atelectasis at the right lung base. The lungs are otherwise clear. There is mild peribronchial thickening PLEURA: No significant pleural effusion identified. No pneumothorax apparent. CARDIOVASCULAR: Normal. OSSEOUS STRUCTURES: No significant abnormalities. VISUALIZED UPPER ABDOMEN: Normal. OTHER FINDINGS: None. IMPRESSION: There is minimal atelectasis at the right lung base. The lungs are otherwise clear. There is mild peribronchial thickening
--- NOTE | 2017-10-07 09:39 | CARD ---
APPROVED REPORT EKG Measurement Heart [id number] <Conclusion> Normal sinus rhythm RVCD LVH by voltage No change
== END 2017-10-06 08:33 | disposition home or self-care (01) ==
LOC: ED 02:35
DX: J18.9 Pneumonia, unspecified organism (principal); N39.0 Urinary tract infection, site not specified; F17.210 Nicotine dependence, cigarettes, uncomplicated; Z88.0 Allergy status to penicillin; J44.0 Chronic obstructive pulmonary disease with (acute) lower respiratory infection; Z98.51 Tubal ligation status
CPT/HCPCS: 71020; 71275; 80053; 80324; 80345; 80346; 80349; 80353; 80358; 80361; 81001; 82550; 83615; 83690; 83735; 83880; 83992; 84484; 85025; 85378; 85610; 85730; 87086; 93005; 96374; 99285; J1885; J7040; Q9967

== ENCOUNTER 2018-09-08 07:11 | Emergency (ER) | payer MEDICAID ==
[2018-09-08 07:30] VITALS: BMI 22.6
--- NOTE | 2018-09-08 07:50 | ED PDOC ---
Arrival/HPI - General Chief Complaint: Substance Abuse Time Seen by Provider: 09/08/18 07:20 Historian: Patient - History of Present Illness Narrative History of Present Illness (Text): 09/08/18 07:46 A 42 year old female, whose past medical history includes heroin abuse, brought to the emergency department by EMS for overdose. Per EMS, patient was at her friend's house and had injected heroin through IV. Patient was given Narcan prior to arrival. Patient denies any symptomatic/physical complaints at this time. No PMD Past Medical History - Provider Review Nursing Documentation Reviewed: Yes - Infectious Disease Hx of Infectious Diseases: None - Tetanus Immunization Tetanus Immunization: Unknown - Reproductive Menopause: No - Cardiac Hx Hypertension: No - Pulmonary Hx Asthma: Yes Hx Chronic Obstructive Pulmonary Disease (COPD): Yes - Neurological Hx Seizures: No - HEENT Hx HEENT Disorder: No - Renal Hx Renal Disorder: No - Endocrine/Metabolic Hx Endocrine Disorders: No - Hematological/Oncological Hx Hepatitis C: Yes - Integumentary Hx Dermatological Disorder: No - Musculoskeletal/Rheumatological Hx Musculoskeletal Disorders: No - Gastrointestinal Hx Gastrointestinal Disorders: No - Genitourinary/Gynecological Hx Sexually Transmitted Diseases: No - Psychiatric Hx Bipolar Disorder: Yes Hx Depression: Yes Hx Substance Use: Yes - Past Surgical History Past Surgical History: Unable to Obtain - Surgical History Hx Tonsillectomy: Yes - Anesthesia Hx Anesthesia: Yes Hx Anesthesia Reactions: No Hx Malignant Hyperthermia: No - Suicidal Assessment Feels Threatened In Home Enviroment: No Family/Social History - Physician Review Nursing Documentation Reviewed: Yes Family/Social History: No Known Family HX Smoking Status: Heavy Smoker > 10 Cigarettes Daily Hx Alcohol Use: No Hx Substance Use: Yes Substance used: Heroin; Cocaine Allergies/Home Meds Allergies/Adverse Reactions: Allergies azithromycin Allergy (Verified 10/26/17 11:23) RASH daptomycin [From Cubicin] Allergy (Verified 09/08/18 07:54) RASH Penicillins Allergy (Verified 10/26/17 11:23) REDNESS Home Medications: Home Meds Medication Instructions Recorded Confirmed Albuterol HFA [Ventolin HFA 90 2 puff IH [id number] 10/06/17 09/08/18 mcg/actuation (8 g)] Review of Systems - Physician Review All systems were reviewed & negative as marked: Yes - Review of Systems Constitutional: absent: Fevers, Night Sweats Respiratory: absent: SOB, Cough Cardiovascular: absent: Chest Pain, Palpitations Gastrointestinal: absent: Abdominal Pain, Diarrhea, Nausea, Vomiting Neurological: absent: Headache, Dizziness Physical Exam Vital Signs Reviewed: Yes Vital Signs Temp Pulse Resp BP Pulse Ox 09/08/18 07:36 97.4 F L 97 H 17 124/87 99 Temperature: Afebrile Blood Pressure: Normal Pulse: Regular Respiratory Rate: Normal Appearance: Positive for: Well-Appearing, Non-Toxic, Comfortable Pain Distress: None Mental Status: Positive for: Alert and Oriented X 3 - Systems Exam Head: Present: Atraumatic, Normocephalic Pupils: Present: PERRL Extroacular Muscles: Present: EOMI Conjunctiva: Present: Normal Mouth: Present: Moist Mucous Membranes Neck: Present: Normal Range of Motion Respiratory/Chest: Present: Clear to Auscultation, Good Air Exchange. No: Respiratory Distress, Accessory Muscle Use Cardiovascular: Present: Regular Rate and Rhythm, Normal S1, S2. No: Murmurs Abdomen: No: Tenderness, Distention, Peritoneal Signs Back: Present: Normal Inspection Upper Extremity: Present: Normal Inspection. No: Cyanosis, Edema Lower Extremity: Present: Normal Inspection. No: Edema Neurological: Present: GCS=15, CN II-XII Intact, Speech Normal Skin: Present: Warm, Dry, Normal Color. No: Rashes Psychiatric: Present: Alert, Oriented x 3, Normal Insight, Normal Concentration Medical Decision Making ED Course and Treatment: 09/08/18 07:48 Impression: 42 year old female brought in for overdose. No acute findings on physical examination. Plan: -- EKG -- Labs -- Urinalysis -- Reassess and disposition Prior Visits: Notes and results from previous visits were reviewed. Patient was last seen in the emergency department on Progress Notes: EKG: Ordered, reviewed, and independently interpreted the EKG. Rate : 90 BPM Rhythm : NSR Interpretation : Incomplete Right Bundle Branch Block. Comparison : No previous EKG for comparison. 09/08/18 11:32 Patient has been re-evaluated, and patient is stable at this time for discharge. Has no complaints and no need for Narcan again. 09/08/18 13:47 observed 5 hours stabel for dc. - Lab Interpretations I have reviewed the lab results: Yes - Scribe Statement The provider has reviewed the documentation as recorded by the Maegan Mays Provider Scribe Attestation: All medical record entries made by the Scribe were at my direction and personally dictated by me. I have reviewed the chart and agree that the record accurately reflects my personal performance of the history, physical exam, medical decision making, and the department course for this patient. I have also personally directed, reviewed, and agree with the discharge instructions and disposition. Disposition/Present on Arrival - Present on Arrival Any Indicators Present on Arrival: No History of DVT/PE: No History of Uncontrolled Diabetes: No Urinary Catheter: No History of Decub. Ulcer: No History Surgical Site Infection Following: None - Disposition Have Diagnosis and Disposition been Completed?: Yes Diagnosis: Overdose, UTI (urinary tract infection) Disposition: HOME/ ROUTINE Disposition Time: 11:00 Condition: STABLE Discharge Instructions (ExitCare): Urinary Tract Infections in Adults, Narcotic Overdose , Polysubstance Abuse Additional Instructions: return to er with worsening symptoms or concerns. Prescriptions: Nitrofurantoin Macrocrystals [Macrobid] 100 mg PO BID #14 cap Forms: [facility] ([place]), WORK NOTE
[2018-09-08 08:03] LABS: BASO # 0.01 K/mm3 (0.0-2.0); BASO % 0.2 % (0.0-3.0); EOS # 0.4 (0.0-0.7); EOS % 8.7 % (1.5-5.0); GRAN # 2.52 (1.4-6.5); HEMOGLOBIN 12.3 g/dL (12.0-16.0); LYMPH # 0.8 (1.2-3.4); LYMPH % 20.4 % (22.0-35.0); MEAN CELL VOLUME 93.9 fl (80.0-105.0); MEAN CORPUSCULAR HEMOGLOBIN 31.4 pg (25.0-35.0); MEAN CORPUSCULAR HGB CONC 33.4 g/dl (31.0-37.0); MEAN PLATELET VOLUME 10.2 fl (7.0-11.0); MONO # 0.3 (0.1-0.6); MONO % 7.7 % (1.0-6.0); RBC 3.92 10^6/uL (3.5-6.1); RED CELL DISTRIBUTION WIDTH 13.6 % (11.5-14.5)
[2018-09-08 08:17] LABS: ALB/GLOB RATIO 1.1 (1.1-1.8); ALBUMIN 4.2 g/dL (3.0-4.8); ALT/SGPT 27 U/L (7-56); AST/SGOT 38 U/L (14-36); BLOOD UREA NITROGEN 22 mg/dL (7-21); CALCIUM 8.8 mg/dL (8.4-10.5); GFR NON-AFRICAN AMERICAN > 60
[2018-09-08 08:18] LABS: ACETAMINOPHEN < 10.0 ug/ml (10.0-20.0); SALICYLATE < 1 mg/dL (2.0-20.0)
[2018-09-08 09:52] LABS: URINE BILIRUBIN NEGATIVE (NEGATIVE); URINE BLOOD TRACE-INTACT (NEGATIVE); URINE GLUCOSE (UA) NEGATIVE (NEGATIVE); URINE LEUKOCYTE ESTERASE SMALL Leu/uL (NEGATIVE); URINE PROTEIN 30 mg/dL (<30 mg/dL); URINE UROBILINOGEN 0.2 E.U./dL (<1 E.U./dL)
[2018-09-08 09:54] LABS: URINE APPEARANCE CLOUDY (CLEAR); URINE COLOR YELLOW (YELLOW)
[2018-09-08 09:56] LABS: HCG,QUALITATIVE URINE NEGATIVE (NEGATIVE)
[2018-09-08 10:09] LABS: URINE BACTERIA FEW (NEG); URINE WBC TNTC /hpf (0-6)
[2018-09-08 10:28] LABS: BARBITURATES, UR NEGATIVE (NEGATIVE); BENZODIAZEPINES, UR NEGATIVE (NEGATIVE); OPIATES, UR POSITIVE (NEGATIVE); PHENCYCLIDINE, UR NEGATIVE (NEGATIVE)
[2018-09-08 11:28] VITALS: BP 122/61; PULSE 86; RESP 14; TEMP 97.8
[2018-09-08 12:31] VITALS: O2SAT 99
--- NOTE | 2018-09-09 09:28 | CARD ---
APPROVED REPORT Date of service: 09/08/2018 EKG Measurement Heart [id number] <Conclusion> Normal sinus rhythm Incomplete right bundle branch block LVH by voltage No change
== END 2018-09-08 11:45 | disposition home or self-care (01) ==
LOC: ED 07:11
DX: N39.0 Urinary tract infection, site not specified (principal); T50.994A Poisoning by other drugs, medicaments and biological substances, undetermined, initial encounter; Y92.89 Other specified places as the place of occurrence of the external cause; F31.9 Bipolar disorder, unspecified

== ENCOUNTER 2018-10-27 21:17 | Inpatient (IN) | payer MEDICAID ==
[2018-10-27 21:18] VITALS: BMI 22.6
--- NOTE | 2018-10-27 21:51 | ED PDOC ---
Arrival/HPI <Adal Barrios - Last Filed: 10/27/18 22:03> - General Historian: Patient - History of Present Illness Narrative History of Present Illness (Text): 10/27/18 21:48 42 y/o female, pmh including asthma/copd, psychiatric history including heroine/drug abuse, allergic to penicillin/macrolides, biba for suicidal ideation. Pt. stated that she has been using heroine on and off chronically, last use prior to arrival with 1 bag, stated that she is depress but triage stated that she is suicidal, stated that she is stress out and need tylenol for her stress induced headache, no head/neck/back/extremity injury, no LOC, no other medical or psychological complaints. <Aashish Martin - Last Filed: 10/28/18 02:16> - General Chief Complaint: Substance Abuse Past Medical History - Provider Review Nursing Documentation Reviewed: Yes - Infectious Disease Hx of Infectious Diseases: None - Tetanus Immunization Tetanus Immunization: Unknown - Cardiac Hx Hypertension: No - Pulmonary Hx Asthma: Yes Hx Chronic Obstructive Pulmonary Disease (COPD): Yes - Neurological Hx Seizures: No - HEENT Hx HEENT Disorder: No - Renal Hx Renal Disorder: No - Endocrine/Metabolic Hx Endocrine Disorders: No - Hematological/Oncological Hx Hepatitis C: Yes - Integumentary Hx Dermatological Disorder: No - Musculoskeletal/Rheumatological Hx Musculoskeletal Disorders: No - Gastrointestinal Hx Gastrointestinal Disorders: No - Genitourinary/Gynecological Hx Sexually Transmitted Diseases: No - Psychiatric Hx Bipolar Disorder: Yes Hx Depression: Yes Hx Substance Use: Yes - Past Surgical History Past Surgical History: Unable to Obtain - Surgical History Hx Tonsillectomy: Yes - Anesthesia Hx Anesthesia: Yes Hx Anesthesia Reactions: No Hx Malignant Hyperthermia: No - Suicidal Assessment Feels Threatened In Home Enviroment: No <Aashish Martin - Last Filed: 10/28/18 02:16> Family/Social History - Physician Review Nursing Documentation Reviewed: Yes Family/Social History: Unknown Family HX Smoking Status: Heavy Smoker > 10 Cigarettes Daily Hx Alcohol Use: No Hx Substance Use: Yes Substance used: Heroin; Cocaine <Aashish Martin - Last Filed: 10/28/18 02:16> Allergies/Home Meds <Adal Barrios - Last Filed: 10/27/18 22:03> <Aashish Martin - Last Filed: 10/28/18 02:16> Allergies/Adverse Reactions: Allergies azithromycin Allergy (Verified 10/26/17 11:23) RASH daptomycin [From Cubicin] Allergy (Verified 09/08/18 07:54) RASH Penicillins Allergy (Verified 10/26/17 11:23) REDNESS Home Medications: Home Meds Medication Instructions Recorded Confirmed Albuterol HFA [Ventolin HFA 90 2 puff IH [id number] 10/06/17 09/08/18 mcg/actuation (8 g)] Review of Systems - Review of Systems Constitutional: absent: Fatigue, Fevers Eyes: absent: Vision Changes ENT: absent: Hearing Changes Respiratory: absent: SOB, Cough Cardiovascular: absent: Chest Pain Gastrointestinal: absent: Abdominal Pain, Nausea, Vomiting Neurological: absent: Headache, Dizziness Psychiatric: Depression. absent: Anxiety <Aashish Martin Q - Last Filed: 10/28/18 02:16> Physical Exam - Systems Exam Head: Present: Atraumatic, Normocephalic, Other (no temporal artery tenderness and no jaw claudication). No: Tenderness, Contusion, Swelling, Ecchymosis, Abrasion, Laceration Pupils: Present: PERRL Extroacular Muscles: Present: EOMI Conjunctiva: Present: Normal Ears: Present: NORMAL TM, Normal Canal. No: Erythema Mouth: Present: Moist Mucous Membranes Pharnyx: No: ERYTHEMA, EXUDATE, TONSILS ENLARGED Nose (External): Present: Atraumatic. No: Abrasion, Contusion, Laceration Nose (Internal): Present: Normal Inspection, No Active Bleeding. No: Rhinorrhea, Septal Hematoma, Epistaxis Neck: Present: Normal Range of Motion, Trachea Midline. No: Meningeal Signs, MIDLINE TENDERNESS, Paraspinal Tenderness, Lymphadenopathy Respiratory/Chest: Present: Clear to Auscultation, Good Air Exchange. No: Respiratory Distress, Accessory Muscle Use Cardiovascular: Present: Regular Rate and Rhythm, Normal S1, S2. No: Murmurs Abdomen: No: Tenderness, Distention, Peritoneal Signs, Rebound, Guarding Back: Present: Normal Inspection. No: CVA Tenderness, Midline Tenderness Upper Extremity: Present: Normal Inspection, Normal ROM. No: Cyanosis, Edema, Tenderness, Swelling, Deformity Lower Extremity: Present: Normal Inspection, Normal ROM. No: Edema, Tenderness, Swelling, Deformity Neurological: Present: GCS=15, CN II-XII Intact, Speech Normal, Motor Func Grossly Intact, Gait Normal, Memory Normal Skin: Present: Warm, Dry, Normal Color. No: Rashes Psychiatric: Present: Alert, Oriented x 3, Normal Insight, Normal Concentration <Aashish Martin - Last Filed: 10/28/18 02:16> Medical Decision Making - RAD Interpretation Radiology Orders: 10/27/18 21:53 CHEST PORTABLE [RAD] Stat - Medication Orders Current Medication Orders: Discontinued Medications Acetaminophen (Tylenol 325mg Tab) 325 mg PO STAT STA Stop: 10/27/18 21:53 <Adal Barrios - Last Filed: 10/27/18 22:03> ED Course and Treatment: 10/27/18 21:57 -labs -ekg -cxr -1 to 1 -PES paged and would come to evaluate the patient -Observe and reassess 10/28/18 01:12 -Beta hcg is negative. -ekg ST @ 105 BPM, no ST elevation or depression, no T wave inversion. -CXR: ER wet read show no active disease -Labs are non-significant -Mg within normal limit -Acetamin/salicylate/alcohol: within normal limit. -UA show no UTI -UDS show +cocaine and +opiate -Pt. is medically clear and stable for psychiatric evaluation. -Pt. evaluated by FILIPE Ring, evaluated the patient and the patient would need admission for suicidal ideation. <Aashish Martin - Last Filed: 10/28/18 02:16> - PA / QUALITY ASSURANCE CALIBRATOR / Resident Statement MUSA has reviewed & agrees with the documentation as recorded. MUSA has examined the patient and agrees with the treatment plan. <Adal Barrios - Last Filed: 10/27/18 22:03> - PA / QUALITY ASSURANCE CALIBRATOR / Resident Statement MUSA has reviewed & agrees with the documentation as recorded. MUSA has examined the patient and agrees with the treatment plan. <Aashish Martin - Last Filed: 10/28/18 02:16> Disposition/Present on Arrival <Adal Barrios - Last Filed: 10/27/18 22:03> - Present on Arrival Any Indicators Present on Arrival: No History of DVT/PE: No History of Uncontrolled Diabetes: No Urinary Catheter: No History of Decub. Ulcer: No History Surgical Site Infection Following: None - Disposition Have Diagnosis and Disposition been Completed?: Yes Disposition Time: 01:12 Patient Plan: Admission <Aashish Martin - Last Filed: 10/28/18 02:16> - Disposition Diagnosis: Suicidal ideation, Heroin abuse, Drug abuse Disposition: HOSPITALIZED Patient Problems: Current Active Problems Problem Status Onset Heroin abuse Chronic Suicidal ideation Acute Condition: STABLE
[2018-10-27 22:10] VITALS: O2SAT 100
[2018-10-27 22:48] LABS: EOS # 0.1 (0.0-0.7); EOS % 1.1 % (1.5-5.0); GRAN # 4.15 (1.4-6.5); GRAN % 78.2 % (50.0-68.0); HEMOGLOBIN 11.6 g/dL (12.0-16.0); LYMPH # 0.7 (1.2-3.4); MEAN CELL VOLUME 90.2 fl (80.0-105.0); MEAN CORPUSCULAR HEMOGLOBIN 29.3 pg (25.0-35.0); MEAN CORPUSCULAR HGB CONC 32.5 g/dl (31.0-37.0); MEAN PLATELET VOLUME 10.4 fl (7.0-11.0); MONO # 0.4 (0.1-0.6); MONO % 7.7 % (1.0-6.0); RBC 3.96 10^6/uL (3.5-6.1); RED CELL DISTRIBUTION WIDTH 12.9 % (11.5-14.5); WHITE BLOOD COUNT 5.3 10^3/uL (4.5-11.0)
[2018-10-27 23:02] LABS: ALB/GLOB RATIO 1.1 (1.1-1.8); ALBUMIN 3.9 g/dL (3.0-4.8); ALT/SGPT 42 U/L (7-56); AST/SGOT 35 U/L (14-36); BLOOD UREA NITROGEN 13 mg/dL (7-21); GFR NON-AFRICAN AMERICAN > 60
[2018-10-27 23:03] LABS: ACETAMINOPHEN < 10.0 ug/ml (10.0-20.0); SALICYLATE < 1 mg/dL (2.0-20.0)
[2018-10-28 00:44] LABS: URINE BILIRUBIN NEGATIVE (NEGATIVE); URINE BLOOD NEGATIVE (NEGATIVE); URINE GLUCOSE (UA) NEGATIVE (NEGATIVE); URINE LEUKOCYTE ESTERASE NEGATIVE Leu/uL (NEGATIVE); URINE PROTEIN TRACE mg/dL (<30 mg/dL); URINE UROBILINOGEN 0.2 E.U./dL (<1 E.U./dL)
[2018-10-28 00:46] LABS: URINE APPEARANCE CLEAR (CLEAR); URINE COLOR YELLOW (YELLOW)
[2018-10-28 00:56] LABS: URINE BACTERIA TRACE (NEG); URINE EPITHELIAL CELLS MANY /hpf (0-5); URINE RBC 0 - 2 /hpf (0-2)
[2018-10-28 01:06] LABS: BARBITURATES, UR NEGATIVE (NEGATIVE)
[2018-10-28 01:18] LABS: BENZODIAZEPINES, UR NEGATIVE (NEGATIVE); OPIATES, UR POSITIVE (NEGATIVE); PHENCYCLIDINE, UR NEGATIVE (NEGATIVE)
[2018-10-28] MEDS ORDERED: Magnesium Hydroxide Susp 30 ml UD PO PRN (02:36)
[2018-10-28] MEDS ORDERED: Alum-Mag Hydrox-Simethicone Susp (30 mL) PO PRN (02:36)
--- NOTE | 2018-10-28 04:04 | PCM.BM ---
<Layla Walsh - Last Filed: 10/28/18 04:03> Treatment Plan Problems - Problems identified on initial assessmt at risk for self harm Date Initiated: 11/07/18 Time Initiated: 04:20 Assessment reference: NA Status: Active ineffective coping Date Initiated: 10/28/18 Time Initiated: 04:20 Assessment reference: NA Status: Active Treatment assets and liabiliti Patient Assests: adapts well, cooperative, ADL independent, good support system, negotiates basic needs, cognitively intact <Lupillo Hicks - Last Filed: 10/28/18 10:43> - Diagnosis (1) Drug abuse Status: Acute Interventions: 10/28/18 10:43 * group, milieu and supportive tx * Continue outpatient medications prescribed by Dr. Millard in the HIV clinic * Trazodone 200 mg HS, * Seroquel 200 mg HS, * Lexapro 30 mg po daily * Neurontin 600 mg po bid * Ativan 0.5 mg po TID for anxiety associated with opiate withdrawal as well as clonidine 0.1 mg po q12 prn * Consider naltrexone to help with abstinence if patient is motivated * Nicotine 14 mg patch daily for nicotine cravings * Awaiting medical f/u by Dr. Luis * consultation for discharge plan and social issues (2) Depression Status: Acute Interventions: 10/28/18 10:43 * group, milieu and supportive tx * Continue outpatient medications prescribed by Dr. Millard in the HIV clinic * Trazodone 200 mg HS, * Seroquel 200 mg HS, * Lexapro 30 mg po daily * Neurontin 600 mg po bid * Ativan 0.5 mg po TID for anxiety associated with opiate withdrawal as well as clonidine 0.1 mg po q12 prn * Consider naltrexone to help with abstinence if patient is motivated * Nicotine 14 mg patch daily for nicotine cravings * Awaiting medical f/u by Dr. Luis * consultation for discharge plan and social issues (3) Tobacco abuse Status: Acute Interventions: 10/28/18 10:43 * group, milieu and supportive tx * Continue outpatient medications prescribed by Dr. Millard in the HIV clinic * Trazodone 200 mg HS, * Seroquel 200 mg HS, * Lexapro 30 mg po daily * Neurontin 600 mg po bid * Ativan 0.5 mg po TID for anxiety associated with opiate withdrawal as well as clonidine 0.1 mg po q12 prn * Consider naltrexone to help with abstinence if patient is motivated * Nicotine 14 mg patch daily for nicotine cravings * Awaiting medical f/u by Dr. Luis * consultation for discharge plan and social issues <Gloria Jose - Last Filed: 10/29/18 16:33> Family Contact Family involvement: Famliy/SO not involved - Goals for Treatment Patient goals for treatment: "I want to go to rehab."
--- NOTE | 2018-10-28 08:37 | RAD ---
HISTORY: medical clearance COMPARISON: Chest x-ray performed 10/06/17 TECHNIQUE: Chest, one view. FINDINGS: Hyperinflation may be seen in the setting of COPD. LUNGS: No focal consolidation. Please note that chest x-ray has limited sensitivity for the detection of pulmonary masses. PLEURA: No significant pleural effusion identified. No definite pneumothorax . CARDIOVASCULAR: Heart size appears top normal. No significant atherosclerotic calcification present. OSSEOUS STRUCTURES: Mild degenerative changes. VISUALIZED UPPER ABDOMEN: Unremarkable. OTHER FINDINGS: None. IMPRESSION: No focal consolidation.
[2018-10-28 08:52] LABS: GLUCOSE,FASTING 85 mg/dL (65-110); HDL CHOLESTEROL 49 mg/dL (29-60)
[2018-10-28 09:03] LABS: LDL CHOLESTEROL 96 mg/dL (0-129)
--- NOTE | 2018-10-28 10:42 | PCM.PSYCH ---
Initial Psychiatric Evaluation - Initial Psychiatric Evaluation Type of Admission: Voluntary Legal Status: Capacity History of Present Illness and Precipitating Events: Pt is a single 42 year old female, with history of depression, anxiety, IV heroin and cocaine dependency, one prior admission at [facility] in 2016, compliant with trazdone 200 mg HS, Seroquel 200 mg HS, Lexapro 30 mg po daily and Neurontin 600 mg po bid prescribed by Dr. Millard in the [facility] who was BIBA to [facility] ER s/p SA by overdosing on heroin after her boyfriend broke up with her and ordered her to move out of their home. ER meraryian obtained collateral from patient's (ex)boyfriend who confirmed that he kicked patient out of their home because of her ongoing drug use. He left the apartment and told patient that he wanted her gone by the time he returned. When he arrived back to the apartment, he found patient lying on the floor unresponsive which led him to contact 911. Collateral stated that patient verbalized that she would harm herself in the past but never acted on it. Presently patient is in fair control though does complain of aches and nausea from heroin withdrawal. Estimates that she takes about 5 bags of heroin daily. She is not suicidal or demonstrating any symtpoms of perceptual disturbance. PSYCHIATRIC HISTORY ~One prior admission within the [facility] at [facility] 10/26/17- 11/02/17 shortly after learning that she was HIV+ Patient was given diagnosis of: Major depressive disorder recurrent severe with psychotic features Opioid use disorder severe Opioid withdrawal Cocaine use disorder severe Patient was discharged one: Neurontin 300 mg PO BID Paxil 20 mg PO DAILY trazodone 50 mg PO HS PRN Patient also presented to the ER on 09/08/18 for an unintentional OD of heroin. Given narcan in the ER and discharged. Patient reports she is compliant with trazdone 200 mg HS, Seroquel 200 mg HS, Lexapro 30 mg po daily and Neurontin 600 mg po bid prescribed by Dr. Millard in the [facility]. Her most recent f/u was June 2018. SOCIAL HISTORY Born and raised in [place]. Unemployed though recently worked at [employer]. Recently homeless since her boyfriend kicked her out immediately [employer]. She has 3 kids, 22 yo, 19 yo and 17 yo. Patients father has custody of her 17 yo. Patient has a long history of IV heroin and cocaine use (for over 18 years). She also smokes pack of cigarettes daily. Prior arrests for CDS and prostitution Current Medications: Active Medications Generic Name Dose Route Start Last Admin Trade Name Freq PRN Reason Stop Dose Admin Acetaminophen 650 mg 10/28/18 02:36 Tylenol 325mg Tab PO Q6H PRN Pain, moderate (4-7) Al Hydrox/Mg Hydrox/Simethicone 30 ml 10/28/18 02:36 Maalox Plus 30 Ml PO DAILY PRN Indigestion / Heartburn Clonidine HCl 0.1 mg 10/28/18 02:44 Catapres PO Q12 PRN withdrawal Magnesium Hydroxide 30 ml 10/28/18 02:36 Milk Of Magnesia PO DAILY PRN Constipation Present on Admission - Present on Admission Any Indicators Present on Admission: No - Notes: Notes:: Please refer to patient's physical exam and ROS findings from [facility] ER report dated 10/27/18 Review of Systems - Review of Systems Review of Systems: Please refer to patient's physical exam and ROS findings from [facility] ER report dated 10/27/18 - Constitutional Constitutional: As Per HPI - EENT Eyes: As Per HPI Ears: As Per HPI Nose/Mouth/Throat: As Per HPI - Breasts Breasts: As Per HPI - Cardiovascular Cardiovascular: As Per HPI - Respiratory Respiratory: As Per HPI - Gastrointestinal Gastrointestinal: As Per HPI - Genitourinary Genitourinary: As Per HPI - Reproductive: Female Reproductive:Female: As Per HPI - Menstruation Menstruation: As Per HPI - Musculoskeletal Musculoskeletal: As Per HPI - Integumentary Integumentary: As Per HPI - Neurological Neurological: As Per HPI - Psychiatric Psychiatric: As Per HPI - Endocrine Endocrine: As Per HPI - Hematologic/Lymphatic Hematologic: As Per HPI Past Patient History - Past Psychiatric History Prior Professional Help: See HPI - PSYCHIATRIC Hx Substance Use: Yes - Infectious Disease Hx of Infectious Diseases: None - Tetanus Immunizations Tetanus Immunization: Unknown - CARDIAC Hx Hypertension: No - PULMONARY Hx Asthma: Yes Hx Chronic Obstructive Pulmonary Disease (COPD): Yes - NEUROLOGICAL Hx Seizures: No - HEENT Hx HEENT Problems: No - RENAL Hx Chronic Kidney Disease: No - ENDOCRINE/METABOLIC Hx Endocrine Disorders: No - HEMATOLOGICAL/ONCOLOGICAL Hx AIDS: (HIV) Hx Hepatitis C: Yes - INTEGUMENTARY Hx Dermatological Problems: No - MUSCULOSKELETAL/RHEUMATOLOGICAL Hx Musculoskeletal Disorders: No - GASTROINTESTINAL Hx Gastrointestinal Disorders: No - GENITOURINARY/GYNECOLOGICAL Hx Sexually Transmitted Disorders: No - SURGICAL HISTORY Hx Tonsillectomy: Yes - ANESTHESIA Hx Anesthesia: Yes Hx Anesthesia Reactions: No Hx Malignant Hyperthermia: No - Medical/Surgical History Reviewed & confirmed: by wa Meds Allergies/Adverse Reactions: Allergies Allergy/AdvReac Type Severity Reaction Status Date / Time azithromycin Allergy RASH Verified 10/26/17 11:23 daptomycin [From Cubicin] Allergy RASH Verified 09/08/18 07:54 Penicillins Allergy REDNESS Verified 10/26/17 11:23 Mental Status Examination - Personal Presentation Personal Presentation: Looks stated age - Affect Affect: Constricted - Motor Activity Motor Activity: Calm - Reliability in Providing Information Reliability in Providing Information: Fair - Speech Speech: Organized - Mood Mood: Depressed, Anxious - Formal Thought Process Formal Thought Process: No Impairment - Obsessions/Compulsions Obsessions: No Compulsions: No - Cognitive Functions Orientation: Person, Place, Situation Sensorium: Alert Attention/Concentration: Attentive Estimate of Intelligence: Average Judgement: Imparied, as evidence by: Poor judgement - Risk Risk: Suicidal, Diminished functioning - Limitations Limitations: Other (recently homeless and bf broke up with her) Psychiatric Physical Exam - Physical Exam Reviewed and confirmed: Emergency Department Physical Exam (Please refer to patient's physical exam and ROS findings from [facility] ER report dated 10/27/18) Results - Vital Signs Recent Vital Signs: Last Vital Signs Temp 98.5 F 10/28/18 03:05 Pulse 85 10/28/18 03:07 Resp 18 10/28/18 03:07 BP 111/61 10/28/18 03:05 Pulse Ox 100 10/27/18 23:18 - Labs Result Diagrams: 10/27/18 22:30 10/27/18 22:30 Labs: Laboratory Results - last 24 hr 10/27/18 10/27/18 10/27/18 22:30 22:30 22:30 WBC 5.3 RBC 3.96 Hgb 11.6 L Hct 35.7 L MCV 90.2 D MCH 29.3 MCHC 32.5 RDW 12.9 Plt Count 231 MPV 10.4 Gran % 78.2 H Lymph % (Auto) 13.0 L [place] % (Auto) 7.7 H Eos % (Auto) 1.1 L Baso % (Auto) 0.0 Gran # 4.15 Lymph # (Auto) 0.7 L [place] # (Auto) 0.4 Eos # (Auto) 0.1 Baso # (Auto) 0.00 Sodium 140 Potassium 4.4 Chloride 106 Carbon Dioxide 28 Anion Gap 10 BUN 13 Creatinine 0.8 Est GFR ( Amer) > 60 Est GFR (Non-Af Amer) > 60 Random Glucose 110 Calcium 9.0 Magnesium 1.7 Total Bilirubin 0.3 AST 35 ALT 42 Alkaline Phosphatase 66 Total Protein 7.4 Albumin 3.9 Globulin 3.5 Albumin/Globulin Ratio 1.1 Beta HCG, Quant Urine Color Urine Appearance Urine pH Ur Specific [place] Urine Protein Urine Glucose (UA) Urine Ketones Urine Blood Urine Nitrate Urine Bilirubin Urine Urobilinogen Ur Leukocyte Esterase Urine RBC Urine WBC Ur Epithelial Cells Urine Bacteria Salicylates < 1 L Urine Opiates Screen Urine Methadone Screen Acetaminophen < 10.0 L Ur Barbiturates Screen Ur Phencyclidine Scrn Ur Amphetamines Screen U Benzodiazepines Scrn U Oth Cocaine Metabols U Cannabinoids Screen Alcohol, Quantitative 10/27/18 10/27/18 10/28/18 22:30 23:50 00:30 WBC RBC Hgb Hct MCV MCH MCHC RDW Plt Count MPV Gran % Lymph % (Auto) [place] % (Auto) Eos % (Auto) Baso % (Auto) Gran # Lymph # (Auto) [place] # (Auto) Eos # (Auto) Baso # (Auto) Sodium Potassium Chloride Carbon Dioxide Anion Gap BUN Creatinine Est GFR ( Amer) Est GFR (Non-Af Amer) Random Glucose Calcium Magnesium Total Bilirubin AST ALT Alkaline Phosphatase Total Protein Albumin Globulin Albumin/Globulin Ratio Beta HCG, Quant < 2.39 Urine Color Urine Appearance Urine pH Ur Specific [place] Urine Protein Urine Glucose (UA) Urine Ketones Urine Blood Urine Nitrate Urine Bilirubin Urine Urobilinogen Ur Leukocyte Esterase Urine RBC Urine WBC Ur Epithelial Cells Urine Bacteria Salicylates Urine Opiates Screen Positive H Urine Methadone Screen Negative Acetaminophen Ur Barbiturates Screen Negative Ur Phencyclidine Scrn Negative Ur Amphetamines Screen Negative U Benzodiazepines Scrn Negative U Oth Cocaine Metabols Positive H U Cannabinoids Screen Negative Alcohol, Quantitative < 10 10/28/18 00:30 WBC RBC Hgb Hct MCV MCH MCHC RDW Plt Count MPV Gran % Lymph % (Auto) [place] % (Auto) Eos % (Auto) Baso % (Auto) Gran # Lymph # (Auto) [place] # (Auto) Eos # (Auto) Baso # (Auto) Sodium Potassium Chloride Carbon Dioxide Anion Gap BUN Creatinine Est GFR ( Amer) Est GFR (Non-Af Amer) Random Glucose Calcium Magnesium Total Bilirubin AST ALT Alkaline Phosphatase Total Protein Albumin Globulin Albumin/Globulin Ratio Beta HCG, Quant Urine Color Yellow Urine Appearance Clear Urine pH 7.0 Ur Specific [place] 1.020 Urine Protein Trace H Urine Glucose (UA) Negative Urine Ketones Trace H Urine Blood Negative Urine Nitrate Negative Urine Bilirubin Negative Urine Urobilinogen 0.2 Ur Leukocyte Esterase Negative Urine RBC 0 - 2 Urine WBC 1 - 3 Ur Epithelial Cells Many Urine Bacteria Trace Salicylates Urine Opiates Screen Urine Methadone Screen Acetaminophen Ur Barbiturates Screen Ur Phencyclidine Scrn Ur Amphetamines Screen U Benzodiazepines Scrn U Oth Cocaine Metabols U Cannabinoids Screen Alcohol, Quantitative - Impressions Impression: Please refer to patient's physical exam and ROS findings from [facility] ER report dated 10/27/18 DSM Plan - DSM 5 DSM 5 Diagnosis: Adjustment disorder with depression and anxiety Major depressive disorder by history Opioid use disorder severe Opioid withdrawal Cocaine use disorder severe - Recommended/Plan of Treatment Treatment Recommendations and Plan of Treatment: * group, milieu and supportive tx * Continue outpatient medications prescribed by Dr. Millard in the HIV clinic * Trazodone 200 mg HS, * Seroquel 200 mg HS, * Lexapro 30 mg po daily * Neurontin 600 mg po bid * Ativan 0.5 mg po TID for anxiety associated with opiate withdrawal as well as clonidine 0.1 mg po q12 prn * Consider naltrexone to help with abstinence if patient is motivated * Nicotine 14 mg patch daily for nicotine cravings * Awaiting medical f/u by Dr. Luis * consultation for discharge plan and social issues ER LABS AND STUDIES Please refer to patient's physical exam and ROS findings from [facility] ER report dated 10/27/18 10/28/18 01:12 -Beta hcg is negative. -ekg ST @ 105 BPM, no ST elevation or depression, no T wave inversion. -CXR: ER wet read show no active disease -Labs are non-significant -Mg within normal limit -Acetamin/salicylate/alcohol: within normal limit. -UA show no UTI -UDS show +cocaine and +opiate FLOOR LABS 10/28/18 10/28/18 08:00 08:00 Fasting Glucose 85 Triglycerides 52 Cholesterol 161 LDL Cholesterol Direct 96 HDL Cholesterol 49 TSH 3rd Generation 0.19 L Projected ELOS: 7 d Prognosis: Guarded Discharge Plan and Discharge Criteria: Patient to return to outpatient provider Dr. Millard at [facility] - Tobacco Cessation Tobacco Use Status for the last 30 days: Heavy User(>=5 cigs &/or cigars/pipes daily) Tobacco Use Treatment Practical Counseling Provided: Yes Type of Medication Provided: Nicoderm CQ - Alcohol or Substance Abuse Does the patient have an Alcohol or Substance Abuse Disorder: Yes Initial Psych Certification - Initial Certification I certify that the inpatient psychiatric facility admission was medically necessary for either: Treatment which could reasonbly be expected to improve pt's condition, Diagnostic study I estimate of hospitalization is necessary for proper treatment of the patient: 7 Unit of Time: Days
[2018-10-28] MEDS ORDERED: Albuterol-Ipratrop 3 mg / 0.5 (3 ml) UD IH PRN (11:45)
[2018-10-28] MEDS ORDERED: Albuterol 0.083% Inhal Sol (2.5 mg/3 mL) UD IH PRN (12:04)
--- NOTE | 2018-10-28 12:50 | CON ---
DATE: 10/28/2018 HISTORY OF PRESENT ILLNESS: She was called to psychiatric unit to do a consult on her. She is sitting out of bed to a chair. She is comfortable. No acute distress. Looking at me smiling, pleasant, doing better than the other day when she overdosed on heroin. She is a 42-year-old white female who overdosed on heroin, also doing cocaine. This started after her boyfriend broke up with her and kicked her out of the house. She ended up in the ER, was sent psychiatric floor. PAST MEDICAL HISTORY: She has a past medical history including asthma, COPD, heroin, drug abuse and cocaine abuse. She has HIV, hepatitis C, anxiety and depression. PAST SURGICAL HISTORY: Unknown surgical history, except she had a tonsillectomy. SOCIAL HISTORY: She is a smoker, hypertension, asthma and drug abuse, bipolar depression, substance abuse. FAMILY HISTORY: Unknown family history. SOCIAL HISTORY: She still smoking cigarettes very heavily. No alcohol but cocaine and heroin. ALLERGIES: SHE IS ALLERGIC TO AZITHROMYCIN, DAPTOMYCIN AND PENICILLINS. MEDICATIONS: She is on Ventolin inhaler. REVIEW OF SYSTEMS: No acute vision or hearing changes. No sore throat. No shortness of breath or cough. No chest pain or palpitations. No abdominal pain, nausea, vomiting or constipation. No headache. No dizziness. She is depressed, not anxious. She is doing better now than before the overdose. PHYSICAL EXAMINATION VITAL SIGNS: She has a 98.3 temp, 84 pulse, 106/60 blood pressure, 16 respiratory rate and 100% O2 sat on room air. HEENT: The head is atraumatic and normocephalic. She is looking at me. She is smiling. She is pleasant. No acute head injury. Pupils are equal and reactive to light. Extraocular muscles are intact. Throat is moist. NECK: Supple. No JVD. No erythema. HEART: Regular rate. Normal, S1 and S2. LUNGS: Decreased breath sounds, but clear to auscultation. No wheezes. No rhonchi. No rales. ABDOMEN: Soft and nontender. Positive bowel sounds. No guarding. No rebound. No CVA tenderness. EXTREMITIES: No edema. NEUROLOGIC: She is alert and oriented x3. GCS is 15. Cranial nerves II through XII grossly intact. Speech is normal. LYMPHS: Thyroid midline. No palpable appreciable lymphadenopathy. LABORATORY DATA: She had multiple tests done. Chest x-ray showed no acute distress or disease. She had a urine test which are positive for opiates and positive for cocaine. Her urinalysis was many epithelial cells, trace bacteria. Sodium 140, potassium 4.4, BUN 13, creatinine 0.8, GFR is greater than 60, sugar is 110, calcium is 9, magnesium 1.7, total bili is 0.3, AST is 35, ALT is 42, alk phos 66, total protein 7.4, albumin is 3.9, triglycerides 52, cholesterol is 161, LDL is 96, TSH is 0.19 could be stress related, I will repeat it, beta HCG for was less than 2.39. White count is 5.3, hemoglobin 11.6, hematocrit 35.7 and platelets are 231. MEDICATIONS: I will place her on DuoNeb's p.r.n. and Ventolin p.r.n. She will back on other regular medications and psychiatric medications. She is calm now. Appears to be in the better place on the other day. No signs of withdrawal at this time. We will watch her closely. ASSESSMENT AND PLAN: See for overdose on heroin, cocaine abuse, human immunodeficiency virus, hepatitic C, anxiety depression, smoker. We will watch very closely. We will check her labs tomorrow. Check her TSH. Parag Luis DO
[2018-10-28] MEDS: Albuterol HFA 90 mcg/actuation (8 g) IH PRN ×2 (15:01→23:53)
--- NOTE | 2018-10-28 18:42 | CARD ---
APPROVED REPORT Date of service: 10/27/2018 EKG Measurement Heart [id number] <Conclusion> Sinus tachycardia Incomplete right bundle branch block Nonspecific T wave abnormality Abnormal ECG
[2018-10-29 07:49] LABS: HEMOGLOBIN 11.8 g/dL (12.0-16.0); MEAN CELL VOLUME 89.2 fl (80.0-105.0); MEAN CORPUSCULAR HEMOGLOBIN 29.6 pg (25.0-35.0); MEAN CORPUSCULAR HGB CONC 33.1 g/dl (31.0-37.0); RBC 3.99 10^6/uL (3.5-6.1); WHITE BLOOD COUNT 2.5 10^3/uL (4.5-11.0)
[2018-10-29 08:03] LABS: ALBUMIN 3.7 g/dL (3.0-4.8); ALT/SGPT 35 U/L (7-56); AST/SGOT 35 U/L (14-36); BLOOD UREA NITROGEN 14 mg/dL (7-21); GFR NON-AFRICAN AMERICAN > 60
[2018-10-29] MEDS: Albuterol HFA 90 mcg/actuation (8 g) IH PRN (09:59)
--- NOTE | 2018-10-29 12:44 | PN ---
DATE: 10/29/2018 SUBJECTIVE: She is resting comfortably in her bed in the psychiatric floor. She slept well. She is eating well, feeling better. MEDICATIONS: She is on Ativan, Catapres, Desyrel, DuoNeb, Lexapro, Maalox, milk of magnesia, Neurontin, Nicoderm, Seroquel, Tylenol, Ultram, and Ventolin. PHYSICAL EXAMINATION: VITAL SIGNS: She has a 97.8 temperature, 79 pulse, 104/51 blood pressure, 20 respiratory rate. HEAD: Atraumatic, normocephalic. HEART: Regular rate. LUNGS: Decreased breath sounds, but clear. ABDOMEN: Soft. EXTREMITIES: No edema. LABORATORY DATA: She has a 2.5 white count, 11.8 hemoglobin, 35.6 hematocrit with 224 platelets. Sodium 138, potassium 3.6, BUN is 40, creatinine 0.7, GFR is greater than 60, sugar is 86, calcium is 9, total bili is 0.4. AST is 35, ALT 35, alk phos 53, total protein 7.2. TSH is getting better, 0.26, could be stress related. ASSESSMENT AND PLAN: I am going to check another blood test tomorrow, check her white count which dropped, and a thyroid test. We will see if that does not improve, we will keep a close eye Arelis Meehan. Parag Luis DO MTDD
--- NOTE | 2018-10-29 14:50 | PCM.PYCHPN ---
Psychiatric Progress Note - Psychiatric Progress Note Patient seen today, length of contact: 30min Patient Chief Complaint: "I could not imaging living without my boyfriend" Problems Identified/Issues Discussed: Suicide/ homicide prevention, past psychiatric h/o, current psychiatric symptoms, medical problems, risk/benefits and alternatives of medications, medications compliance, coping strategies, substance abuse h/o, relapse prevention, importance of follow up with psychiatrist and therapist, discharge plan. Medical Problems: HIV, Hep C, see HPI Diagnostic Results: 10/29/18 07:30 10/29/18 07:30 Lab Results 10/29/18 07:30: TSH 3rd Generation 0.26 L 10/29/18 07:30: Sodium 138, Potassium 3.6, Chloride 107, Carbon Dioxide 26, Anion Gap 8 L, BUN 14, Creatinine 0.7, Est GFR ( Amer) > 60, Est GFR (Non-Af Amer) > 60, Random Glucose 86, Calcium 9.0, Total Bilirubin 0.4, AST 35, ALT 35, Alkaline Phosphatase 63, Total Protein 7.2, Albumin 3.7, Globulin 3.5, Albumin/Globulin Ratio 1.0 L 10/29/18 07:30: WBC 2.5 L D, RBC 3.99, Hgb 11.8 L, Hct 35.6 L, MCV 89.2, MCH 29.6, MCHC 33.1, RDW 13.0, Plt Count 224, MPV 10.0 10/28/18 08:00: RPR Nonreactive 10/28/18 08:00: TSH 3rd Generation 0.19 L 10/28/18 08:00: Fasting Glucose 85, Triglycerides 52, Cholesterol 161, LDL Cholesterol Direct 96, HDL Cholesterol 49 10/28/18 00:30: Urine Color Yellow, Urine Appearance Clear, Urine pH 7.0, Ur Specific [place] 1.020, Urine Protein Trace H, Urine Glucose (UA) Negative, Urine Ketones Trace H, Urine Blood Negative, Urine Nitrate Negative, Urine Bilirubin Negative, Urine Urobilinogen 0.2, Ur Leukocyte Esterase Negative, Urine RBC 0 - 2, Urine WBC 1 - 3, Ur Epithelial Cells Many, Urine Bacteria Trace 10/28/18 00:30: Urine Opiates Screen Positive H, Urine Methadone Screen Negative, Ur Barbiturates Screen Negative, Ur Phencyclidine Scrn Negative, Ur Amphetamines Screen Negative, U Benzodiazepines Scrn Negative, U Oth Cocaine Metabols Positive H, U Cannabinoids Screen Negative 10/27/18 23:50: Beta HCG, Quant < 2.39 10/27/18 22:30: Alcohol, Quantitative < 10 10/27/18 22:30: WBC 5.3, RBC 3.96, Hgb 11.6 L, Hct 35.7 L, MCV 90.2 D, MCH 29.3, MCHC 32.5, RDW 12.9, Plt Count 231, MPV 10.4, Gran % 78.2 H, Lymph % (Auto) 13.0 L, [place] % (Auto) 7.7 H, Eos % (Auto) 1.1 L, Baso % (Auto) 0.0, Gran # 4.15, Lymph # (Auto) 0.7 L, [place] # (Auto) 0.4, Eos # (Auto) 0.1, Baso # (Auto) 0.00 10/27/18 22:30: Sodium 140, Potassium 4.4, Chloride 106, Carbon Dioxide 28, Anion Gap 10, BUN 13, Creatinine 0.8, Est GFR ( Amer) > 60, Est GFR (Non-Af Amer) > 60, Random Glucose 110, Calcium 9.0, Magnesium 1.7, Total Bilirubin 0.3, AST 35, ALT 42, Alkaline Phosphatase 66, Total Protein 7.4, Albumin 3.9, Globulin 3.5, Albumin/Globulin Ratio 1.1 10/27/18 22:30: Salicylates < 1 L, Acetaminophen < 10.0 L Vital Signs Temp Pulse Pulse Resp BP Pulse Ox 10/29/18 10:08 92 H 102/62 10/29/18 10:07 94 H 17 102/62 10/29/18 06:45 97.8 F 79 20 104/51 L 10/28/18 15:00 82 100/66 10/28/18 09:38 84 106/60 10/28/18 07:00 98.3 F 84 16 93/55 L 10/28/18 03:07 85 18 10/28/18 03:05 98.5 F 85 18 111/61 10/27/18 23:18 99 H 18 118/72 100 10/27/18 21:18 98.1 F 102 H 18 122/73 100 DSM 5 Symptoms Update: As per Dr. Hicks's assessment: Pt is a single 42 year old female, with history of depression, anxiety, IV heroin and cocaine dependency, one prior admission at [facility] in 2017, compliant with trazdone 200 mg HS, Seroquel 200 mg HS, Lexapro 30 mg po daily and Neurontin 600 mg po bid prescribed by Dr. Millard in the [facility] who was BIBA to [facility] ER s/p SA by overdosing on heroin after her boyfriend broke up with her and ordered her to move out of their home. ER clinician obtained collateral from patient's (ex)boyfriend who confirmed that he kicked patient out of their home because of her ongoing drug use. He left the apartment and told patient that he wanted her gone by the time he returned. When he arrived back to the apartment, he found patient lying on the floor unresponsive which led him to contact 911. Collateral stated that patient verbalized that she would harm herself in the past but never acted on it. She was seen and examined today at the treatment team meeting, patient seems to be a good and reliable historian. Patient indicated that she purchased a heroin from a new drug dealer "it was stronger than usual", she reported that initially she wanted to get high which led pt to loss her consciousness patient's (? Boyfriend/) confronted her and "it led to the argument", patient ex boyfriend/ told her that she is breaking up with her and requested her to move out from the house, patient was filled "overwhelmed, I cannot image in my left without him, after he left I decided to end it all, I shoot 7 bags of hearing, I woke up in the emergency room". Patient reported that she had about 5 suicidal attempts in the past, most serious suicidal attempt was in 2014 where patient needed to be intubated after overdose on opioids., Patient said for past 4-6 weeks he did not think to end up her life, and patient described her suicidal attempt as "impulsive act", seems to be remorseful, patient denied any intent or plan to kill herself now, contracted for safety, expressed her interest to go to inpatient rehab. Present: Patient is not suicidal or demonstrating any symtpoms of perceptual disturbance. PSYCHIATRIC HISTORY ~One prior admission within the [facility] at [facility] 10/26/17- 11/02/17 shortly after learning that she was HIV+ Patient was given diagnosis of: Major depressive disorder recurrent severe with psychotic features Opioid use disorder severe Opioid withdrawal Cocaine use disorder severe Patient was discharged one: Neurontin 300 mg PO BID Paxil 20 mg PO DAILY trazodone 50 mg PO HS PRN Patient also presented to the ER on 09/08/18 for an unintentional OD of heroin. Given narcan in the ER and discharged. Patient reports she is compliant with trazdone 200 mg HS, Seroquel 200 mg HS, Lexapro 30 mg po daily and Neurontin 600 mg po bid prescribed by Dr. Millard in the [facility]. Her most recent f/u was June 2018. SOCIAL HISTORY Born and raised in [place]. Unemployed though recently worked at [employer]. Recently homeless since her boyfriend kicked her out immediately [employer]. She has 3 kids, 22 yo, 19 yo and 17 yo. Patients father has custody of her 17 yo. Patient has a long history of IV heroin and cocaine use (for over 18 years). She also smokes pack of cigarettes daily. Prior arrests for CDS and prostitution. So far pt tolerates meds well, no side effects observed or reported, AIMS 0, no EPS. Impression: Major depressive disorder recurrent severe without psychosis Opioid use disorder severe Opioid withdrawal Cocaine use disorder severe Medication Change: Yes (tramadol as needed for pain) Medical Record Reviewed: Yes Consults ordered or reviewed: Medical consult was called Mental Status Examination - Cognitive Function Orientation: Person, Place, Situation Memory: Intact Attention: Poor Concentration: Poor Association: WNL Fund of Knowledge: WNL - Mood Mood: Depressed, Anxious - Affect Affect: Constricted - Formal Thought Process Formal Thought Process: No Impairment - Suicidal Ideation Suicidal Ideation: No - Homicidal Ideation Homicidal Ideation: No Goal/Treatment Plan - Goal/Treatment Plan Need for Continued Stay: Remain at risks for inpatient hospitalization, Severe depression anxiety, Discharge may exacerbated symptoms, Severe functional impairment Progress Toward Problem(s) and Goals/Treatment Plan: group, milieu and supportive tx Continue outpatient medications prescribed by Dr. Millard in the HIV clinic Trazodone 200 mg HS, for depression, insomnia Seroquel 200 mg HS, for mood stabilization Lexapro 30 mg po daily, for depression and anxiety Neurontin 600 mg po bid, off label for withdrawals tramadol as needed for pain Ativan 0.5 mg po TID for anxiety associated with opiate withdrawal as well as clonidine 0.1 mg po q12 prn Consider naltrexone to help with abstinence if patient is motivated Nicotine 14 mg patch daily for nicotine cravings Awaiting medical f/u by Dr. Janelle GALLEGOS consultation for discharge plan and social issues, possible inpatient rehab family involvement Estimated Date of D/C: 11/02/18 - Smoking Cessation Smoking Cessation Initiated: Yes
[2018-10-30 07:52] LABS: ALB/GLOB RATIO 1.1 (1.1-1.8); ALBUMIN 3.9 g/dL (3.0-4.8); ALT/SGPT 39 U/L (7-56); AST/SGOT 33 U/L (14-36); BLOOD UREA NITROGEN 12 mg/dL (7-21); CALCIUM 9.2 mg/dL (8.4-10.5); GFR NON-AFRICAN AMERICAN > 60
--- NOTE | 2018-10-30 10:49 | PN ---
DATE: 10/30/2018 SUBJECTIVE: I saw her resting comfortably in bed in the psychiatric floor. She is feeling better, improving. MEDICATIONS: She is on Ativan, Catapres, Desyrel, DuoNeb, Lexapro, Maalox, milk of magnesia, Neurontin, Nicoderm, Seroquel, Tylenol, Ultram, Ventolin. PHYSICAL EXAMINATION: VITAL SIGNS: 98.8 temperature, 67 pulse, 99/60 blood pressure, 18 respiratory rate. HEAD: Atraumatic, normocephalic. HEART: Regular rate LUNGS: Clear to auscultation, decreased breath sounds. ABDOMEN: Soft EXTREMITIES: No edema. LABORATORY DATA: She has a 2.5 white count, 11.8 hemoglobin, 35.6 hematocrit with 224 platelets. Sodium 141, potassium 3.8, BUN is 12, creatinine 0.7, GFR is greater than 60, sugar is 91, calcium is 9.2, total bili is 0.4. AST is 33, ALT is 39, alk phos 52. The last TSH was 0.24. ASSESSMENT AND PLAN: I am going to consult Endocrinology about her low thyroid stimulating hormone. She could be having hyperthyroid would correct by now and it is not. I am also going to repeat a CBC, but the white count is still a little bit low. I will consult Dr. Fisher, the technical sourcing recruiter for her low thyroid stimulating hormone. We will follow. Parag Luis DO MTDD
--- NOTE | 2018-10-30 14:41 | PCM.PYCHPN ---
Psychiatric Progress Note - Psychiatric Progress Note Patient seen today, length of contact: 30min Patient Chief Complaint: "I feel more comfortable" Problems Identified/Issues Discussed: Suicide/ homicide prevention, past psychiatric h/o, current psychiatric symptoms, medical problems, risk/benefits and alternatives of medications, medications compliance, coping strategies, substance abuse h/o, relapse prevention, importance of follow up with psychiatrist and therapist, discharge plan. Medical Problems: HIV, Hep C, see HPI Diagnostic Results: 10/29/18 07:30 10/29/18 07:30 Lab Results 10/29/18 07:30: TSH 3rd Generation 0.26 L 10/29/18 07:30: Sodium 138, Potassium 3.6, Chloride 107, Carbon Dioxide 26, Anion Gap 8 L, BUN 14, Creatinine 0.7, Est GFR ( Amer) > 60, Est GFR (Non -Af Amer) > 60, Random Glucose 86, Calcium 9.0, Total Bilirubin 0.4, AST 35, ALT 35, Alkaline Phosphatase 63, Total Protein 7.2, Albumin 3.7, Globulin 3.5, Albumin/Globulin Ratio 1.0 L 10/29/18 07:30: WBC 2.5 L D, RBC 3.99, Hgb 11.8 L, Hct 35.6 L, MCV 89.2, MCH 29.6, MCHC 33.1, RDW 13.0, Plt Count 224, MPV 10.0 10/28/18 08:00: RPR Nonreactive 10/28/18 08:00: TSH 3rd Generation 0.19 L 10/28/18 08:00: Fasting Glucose 85, Triglycerides 52, Cholesterol 161, LDL Cholesterol Direct 96, HDL Cholesterol 49 10/28/18 00:30: Urine Color Yellow, Urine Appearance Clear, Urine pH 7.0, Ur Specific [place] 1.020, Urine Protein Trace H, Urine Glucose (UA) Negative, Urine Ketones Trace H, Urine Blood Negative, Urine Nitrate Negative, Urine Bilirubin Negative, Urine Urobilinogen 0.2, Ur Leukocyte Esterase Negative, Urine RBC 0 - 2, Urine WBC 1 - 3, Ur Epithelial Cells Many, Urine Bacteria Trace 10/28/18 00:30: Urine Opiates Screen Positive H, Urine Methadone Screen Negative, Ur Barbiturates Screen Negative, Ur Phencyclidine Scrn Negative, Ur Amphetamines Screen Negative, U Benzodiazepines Scrn Negative, U Oth Cocaine Metabols Positive H, U Cannabinoids Screen Negative 10/27/18 23:50: Beta HCG, Quant < 2.39 10/27/18 22:30: Alcohol, Quantitative < 10 10/27/18 22:30: WBC 5.3, RBC 3.96, Hgb 11.6 L, Hct 35.7 L, MCV 90.2 D, MCH 29.3, MCHC 32.5, RDW 12.9, Plt Count 231, MPV 10.4, Gran % 78.2 H, Lymph % (Auto) 13.0 L, [place] % (Auto) 7.7 H, Eos % (Auto) 1.1 L, Baso % (Auto) 0.0, Gran # 4.15, Lymph # (Auto) 0.7 L, [place] # (Auto) 0.4, Eos # (Auto) 0.1, Baso # (Auto) 0.00 10/27/18 22:30: Sodium 140, Potassium 4.4, Chloride 106, Carbon Dioxide 28, Anion Gap 10, BUN 13, Creatinine 0.8, Est GFR ( Amer) > 60, Est GFR (Non- Af Amer) > 60, Random Glucose 110, Calcium 9.0, Magnesium 1.7, Total Bilirubin 0.3, AST 35, ALT 42, Alkaline Phosphatase 66, Total Protein 7.4, Albumin 3.9, Globulin 3.5, Albumin/Globulin Ratio 1.1 10/27/18 22:30: Salicylates < 1 L, Acetaminophen < 10.0 L Vital Signs Temp Pulse Pulse Resp BP Pulse Ox 10/29/18 10:08 92 H 102/62 10/29/18 10:07 94 H 17 102/62 10/29/18 06:45 97.8 F 79 20 104/51 L 10/28/18 15:00 82 100/66 10/28/18 09:38 84 106/60 10/28/18 07:00 98.3 F 84 16 93/55 L 10/28/18 03:07 85 18 10/28/18 03:05 98.5 F 85 18 111/61 10/27/18 23:18 99 H 18 118/72 100 10/27/18 21:18 98.1 F 102 H 18 122/73 100 DSM 5 Symptoms Update: Pt is a single 42 year old female, with history of depression, anxiety, IV heroin and cocaine dependency, one prior admission at [facility] in 2017, compliant with trazdone 200 mg HS, Seroquel 200 mg HS, Lexapro 30 mg po daily and Neurontin 600 mg po bid prescribed by Dr. Millard in the [facility] who was BIBA to [facility] ER s/p SA by overdosing on heroin after her boyfr iend broke up with her and ordered her to move out of their home. ER clinician obtained collateral from patient's (ex)boyfriend who confirmed that he kicked patient out of their home because of her ongoing drug use. He left the apartment and told patient that he wanted her gone by the time he returned. When he arrived back to the apartment, he found patient lying on the floor unresponsive which led him to contact 911. Collateral stated that patient verbalized that she would harm herself in the past but never acted on it. She was seen and examined today in her room, patient appears to be sleepy, patient reported that that she feels "more comfortable", patient denied any physical symptoms of opioid withdrawals, patient is able to tolerate food, patient denied nausea or vomiting. Patient reported her mood is "the same, but I think that I feel little better", patient expressed her interest to go to inpatient rehab, patient is not sure if her boyfriend/ is willing to accept her back home but patient reported regardless of decision she wants to go to inpatient rehab. Patient denied any perceptual disturbances, patient denied hearing voices denied seeing things, denied paranoid ideation patient does not present to be psychotic. So far pt tolerates meds well, no side effects observed or reported, AIMS 0, no EPS. Impression: Major depressive disorder recurrent severe without psychosis Opioid use disorder severe Opioid withdrawal Cocaine use disorder severe Medication Change: Yes (tramadol as needed for pain) Medical Record Reviewed: Yes Consults ordered or reviewed: Medical consult was called Mental Status Examination - Cognitive Function Orientation: Person, Place, Situation Memory: Intact Attention: Poor Concentration: Poor Association: WNL Fund of Knowledge: WNL - Mood Mood: Depressed ("I feel a little bit better"), Anxious - Affect Affect: Constricted - Formal Thought Process Formal Thought Process: No Impairment - Suicidal Ideation Suicidal Ideation: No - Homicidal Ideation Homicidal Ideation: No Goal/Treatment Plan - Goal/Treatment Plan Need for Continued Stay: Remain at risks for inpatient hospitalization, Severe depression anxiety, Discharge may exacerbated symptoms, Severe functional impairment Progress Toward Problem(s) and Goals/Treatment Plan: group, milieu and supportive tx Continue outpatient medications prescribed by Dr. Millard in the HIV clinic Trazodone 200 mg HS, for depression, insomnia Seroquel 200 mg HS, for mood stabilization Lexapro 30 mg po daily, for depression and anxiety Neurontin 600 mg po bid, off label for withdrawals tramadol as needed for pain Ativan 0.5 mg po TID for anxiety associated with opiate withdrawal as well as clonidine 0.1 mg po q12 prn Consider naltrexone to help with abstinence if patient is motivated Nicotine 14 mg patch daily for nicotine cravings Awaiting medical f/u by Dr. Janelle GALLEGOS consultation for discharge plan and social issues, possible inpatient rehab family involvement Estimated Date of D/C: 11/02/18
[2018-10-30] MEDS: methIMAzole 5 MG TAB PO SCH (17:36)
[2018-10-30] MEDS: Albuterol HFA 90 mcg/actuation (8 g) IH PRN (17:55)
--- NOTE | 2018-10-30 19:33 | CON ---
DATE OF CONSULTATION: 10/30/2018 LOCATION: Psychiatry Room 518. HISTORY OF PRESENT ILLNESS: This is a 42-year-old female with known history of bipolar disorder and polysubstance abuse, presenting here with a suicidal gesture and is now being referred for evaluation of abnormal thyroid function studies. PAST MEDICAL HISTORY: As mentioned above. History of generalized anxiety and major depressive disorder, currently on psychotropic medications as noted. History of a previous admission at the [facility] for recurrent major depressive disorder and psychosis. FAMILY HISTORY: Positive for hypertension and heart disease. SOCIAL HISTORY: The patient admits to polysubstance use with ongoing IV heroin and cocaine dependence and use. Also admits to nicotine dependence and smokes a pack a day for many years now. Admits to social use of alcohol. She actually lives with her boyfriend, but apparently was asked to leave his house because of substance abuse and was found unresponsive by the boyfriend at home as noted. REVIEW OF SYSTEMS: As mentioned above. Admits to generalized body weakness with episodic bouts of dizziness and lightheadedness with suboptimal energy level. Also admits to marked insomnia with disruptive sleep patterns. Admits to episodic bouts of palpitations and shortness of breath especially on exertion. Her oral intake has been variable with nausea, dyspepsia and vague upper abdominal pains. No recent alterations of bowel and urinary patterns. PHYSICAL EXAMINATION: GENERAL: An average built female in no apparent distress. VITAL SIGNS: Blood pressure of 130/80, pulse of 100 beats per minute and regular, temperature 98, respirations 20. Height is 5'3", weight is 135 pounds. HEENT: Head normocephalic. Eyes anicteric with pink conjunctivae. Funduscopy not possible at this time. Ears, nose and throat otherwise normal. NECK: Supple. Thyroid gland is normal in size. No carotid bruits or cervical adenopathy. CARDIOPULMONARY: Some adynamic precordium. S1, S2 is rapid and regular. Lungs show scattered rhonchi. ABDOMEN: Flat, soft with positive bowel sounds. EXTREMITIES: No peripheral edema. Pulses are +2 bilaterally. LABORATORY DATA: Chemistries show a BUN of 12, sodium 141, potassium 3.8, chloride 110, CO2 of 26, glucose 91, and creatinine 0.7. Her TSH levels have ranged from 0.19 to 0.26 and 0.24 done 3 times. ASSESSMENT: This is a 42-year-old female with major depressive disorder, presenting here with suicidal ideation and a brief bout of unresponsiveness and is being evaluated also for abnormal thyroid function studies. She remains clinically euthyroid, but biochemically has evidence of the so-called subclinical hyperthyroidism as noted thereof. She most likely also has underlying autoimmune thyroiditis, which appeared to be confirmed by a thyroid antibody testing thereof. PLAN OF MANAGEMENT: We will obtain a comprehensive thyroid hormonal profile with a total and free T4 and TSH tomorrow morning. We will add thyroid antibodies to include a thyroid peroxidase antibody and a thyroid stimulating immunoglobulin, which will confirm and/or indicate the presence of underlying thyroid autoimmunity. We will start her empirically on Tapazole given as 5 mg b.i.d. to start today. We will obtain serial chemistries and supplement accordingly as needed. We will follow. Eugenie Fisher MD
[2018-10-31 07:57] LABS: HEMOGLOBIN 12.8 g/dL (12.0-16.0); MEAN CELL VOLUME 87.7 fl (80.0-105.0); MEAN CORPUSCULAR HEMOGLOBIN 29.8 pg (25.0-35.0); RBC 4.3 10^6/uL (3.5-6.1); RED CELL DISTRIBUTION WIDTH 12.7 % (11.5-14.5)
[2018-10-31] MEDS: Albuterol HFA 90 mcg/actuation (8 g) IH PRN ×2 (08:20→21:10)
[2018-10-31] MEDS: methIMAzole 5 MG TAB PO SCH ×2 (08:21→15:05)
[2018-10-31] MEDS ORDERED: STRIBILD PO SCH (08:30)
[2018-10-31 08:55] LABS: FREE T4 1.19 ng/dL (0.78-2.19); T4 5.6 ug/dL (5.5-11.0)
[2018-10-31] MEDS: STRIBILD PO SCH (09:03)
--- NOTE | 2018-10-31 11:03 | CP.PCM.PN ---
Subjective - Date & Time of Evaluation Date of Evaluation: 10/31/18 Time of Evaluation: 08:00 - Subjective Subjective: Endocrinology Progress Note - Dr. Fisher Patient was seen and examined at bedside. No acute complaints at this time. No acute or adverse events overnight as per nursing staff. Patient tolerated breakfast this morning. Patient states she is starting to feel better and no longer has SI/HI. Patient denied fever, chills, shortness of breath, chest pains, palpitations, abdominal pains, nausea, vomiting, diarrhea, constipation, or dysuria. Objective - Vital Signs/Intake and Output Vital Signs (last 24 hours): Temp Pulse Resp BP Pulse Ox 98.2 F 52 L 20 117/67 100 10/31/18 07:11 10/31/18 07:11 10/31/18 07:11 10/31/18 07:11 10/27/18 23:18 - Medications Medications: Current Medications Acetaminophen (Tylenol 325mg Tab) 650 mg PO Q6H PRN PRN Reason: Pain, moderate (4-7) Al Hydrox/Mg Hydrox/Simethicone (Maalox Plus 30 Ml) 30 ml PO DAILY PRN PRN Reason: Indigestion / Heartburn Albuterol (Ventolin Hfa 90 Mcg/Actuation (8 G)) 2 puff IH [id number] PRN PRN Reason: Shortness of Breath Last Admin: 10/31/18 08:20 Dose: 2 puff Albuterol/Ipratropium (Duoneb 3 Mg/0.5 Mg (3 Ml) Ud) 3 ml IH [id number] PRN PRN Reason: Shortness of Breath Clonidine HCl (Catapres) 0.1 mg PO Q12 PRN PRN Reason: withdrawal Last Admin: 10/31/18 08:22 Dose: 0.1 mg Escitalopram Oxalate (Lexapro) 30 mg PO DAILY BETY Last Admin: 10/31/18 08:21 Dose: 30 mg Gabapentin (Neurontin) 600 mg PO AMHS [facility]; Protocol Last Admin: 10/31/18 09:03 Dose: 600 mg Home Med (Home Med) 1 unit PO DAILY BETY Last Admin: 10/31/18 09:03 Dose: 1 unit Lorazepam (Ativan) 0.5 mg PO BID BETY; Protocol Last Admin: 10/31/18 08:21 Dose: 0.5 mg Lorazepam (Ativan) 0.5 mg PO HS [facility]; Protocol Last Admin: 10/30/18 21:04 Dose: 0.5 mg Magnesium Hydroxide (Milk Of Magnesia) 30 ml PO DAILY PRN PRN Reason: Constipation Methimazole (Tapazole) 5 mg PO BID [facility] Last Admin: 10/31/18 08:21 Dose: 5 mg Nicotine (Nicoderm Cq) 1 patch TD DAILY BETY Last Admin: 10/31/18 08:21 Dose: 1 patch Quetiapine Fumarate (Seroquel) 200 mg PO HS BETY; Protocol Last Admin: 10/30/18 21:05 Dose: 200 mg Tramadol HCl (Ultram) 50 mg PO TID PRN PRN Reason: Pain, moderate (4-7) Last Admin: 10/31/18 10:10 Dose: 50 mg Trazodone HCl (Desyrel) 200 mg PO HS [facility] Last Admin: 10/30/18 21:05 Dose: 200 mg - Labs Labs: 10/31/18 07:30 10/30/18 07:30 - Constitutional Appears: Well - Head Exam Head Exam: ATRAUMATIC, NORMAL INSPECTION, NORMOCEPHALIC - Eye Exam Eye Exam: EOMI, Normal appearance, PERRL - ENT Exam ENT Exam: Mucous Membranes Moist, Normal Exam - Neck Exam Neck Exam: Full ROM, Normal Inspection. absent: Lymphadenopathy - Respiratory Exam Respiratory Exam: Clear to Ausculation Bilateral, NORMAL BREATHING PATTERN - Cardiovascular Exam Cardiovascular Exam: REGULAR RHYTHM, +S1, +S2. absent: Murmur - GI/Abdominal Exam GI & Abdominal Exam: Soft, Normal Bowel Sounds. absent: Tenderness - Extremities Exam Extremities Exam: Full ROM, Normal Capillary Refill, Normal Inspection. absent: Joint Swelling, Pedal Edema - Neurological Exam Neurological Exam: Alert, Awake, CN II-XII Intact, Normal Gait, Oriented x3 - Psychiatric Exam Psychiatric exam: Normal Affect, Normal Mood - Skin Skin Exam: Dry, Intact, Normal Color, Warm Assessment and Plan - Assessment and Plan (Free Text) Assessment: 42 F with a PMHx of generalized anxiety, polysubstance abuse, and bipolar and MDD presented to [facility] for SI. Plan: Thyroid studies revealed low TSH and normal T4 and fT4. Will fu thyroid Ab, thyroid peroxidase, thyroid stimulating Ig. Patient was started empiric 5mg BID. B Hcg negative.
--- NOTE | 2018-10-31 13:21 | CP.PCM.CON ---
History of Present Illness - History of Present Illness History of Present Illness: 42 year old female with PMH of COPD, heroin and polysubstance abuse, chronic HIV infection has been on antiretroviral therapy for about 6 months now and diagnosed a year ago, Hepatitis C infection was brought in to [facility] because of suicidal ideation and is now being managed in the Psych unit. Infectious Diseases consult is requested for HIV. She states that she was diagnosed a year ago, does not recall her last CD4 count or virus load, was put on Stribild since May 2018 and has been taking it. Does not recall her HIV provider but she is transferring from [place] to [place]. She has a stable sexual partner that does not know her status. She admits to practicing safe sex with her sexual partner. She denies headache or dizziness, no abdominal pain, no nausea or vomiting, no SOB, no cough or rhinorrhea, no diarrhea, no dysuria. Review of Systems - Review of Systems All systems: reviewed and no additional remarkable complaints except (as per HPI) Past Patient History - Infectious Disease Hx of Infectious Diseases: None - Tetanus Immunizations Tetanus Immunization: Unknown - Past Social History Smoking Status: Heavy Smoker > 10 Cigarettes Daily - CARDIAC Hx Hypertension: No - PULMONARY Hx Asthma: Yes Hx Chronic Obstructive Pulmonary Disease (COPD): Yes - NEUROLOGICAL Hx Seizures: No - HEENT Hx HEENT Problems: No - RENAL Hx Chronic Kidney Disease: No - ENDOCRINE/METABOLIC Hx Endocrine Disorders: No - HEMATOLOGICAL/ONCOLOGICAL Hx AIDS: (HIV) Hx Hepatitis C: Yes - INTEGUMENTARY Hx Dermatological Problems: No - MUSCULOSKELETAL/RHEUMATOLOGICAL Hx Musculoskeletal Disorders: No - GASTROINTESTINAL Hx Gastrointestinal Disorders: No - GENITOURINARY/GYNECOLOGICAL Hx Sexually Transmitted Disorders: No - PSYCHIATRIC Hx Substance Use: Yes - SURGICAL HISTORY Hx Tonsillectomy: Yes - ANESTHESIA Hx Anesthesia: Yes Hx Anesthesia Reactions: No Hx Malignant Hyperthermia: No Meds Allergies/Adverse Reactions: Allergies Allergy/AdvReac Type Severity Reaction Status Date / Time azithromycin Allergy RASH Verified 10/28/18 21:09 daptomycin [From Cubicin] Allergy RASH Verified 10/28/18 21:09 Penicillins Allergy REDNESS Verified 10/28/18 21:09 - Medications Medications: Current Medications Acetaminophen (Tylenol 325mg Tab) 650 mg PO Q6H PRN PRN Reason: Pain, moderate (4-7) Al Hydrox/Mg Hydrox/Simethicone (Maalox Plus 30 Ml) 30 ml PO DAILY PRN PRN Reason: Indigestion / Heartburn Albuterol (Ventolin Hfa 90 Mcg/Actuation (8 G)) 2 puff IH [id number] PRN PRN Reason: Shortness of Breath Last Admin: 10/31/18 08:20 Dose: 2 puff Albuterol/Ipratropium (Duoneb 3 Mg/0.5 Mg (3 Ml) Ud) 3 ml IH [id number] PRN PRN Reason: Shortness of Breath Clonidine HCl (Catapres) 0.1 mg PO Q12 PRN PRN Reason: withdrawal Last Admin: 10/31/18 08:22 Dose: 0.1 mg Escitalopram Oxalate (Lexapro) 30 mg PO DAILY [facility] Last Admin: 10/31/18 08:21 Dose: 30 mg Gabapentin (Neurontin) 600 mg PO AMHS [facility]; Protocol Last Admin: 10/31/18 09:03 Dose: 600 mg Home Med (Home Med) 1 unit PO DAILY [facility] Last Admin: 10/31/18 09:03 Dose: 1 unit Lorazepam (Ativan) 0.5 mg PO BID [facility]; Protocol Last Admin: 10/31/18 08:21 Dose: 0.5 mg Lorazepam (Ativan) 0.5 mg PO HS [facility]; Protocol Last Admin: 10/30/18 21:04 Dose: 0.5 mg Magnesium Hydroxide (Milk Of Magnesia) 30 ml PO DAILY PRN PRN Reason: Constipation Methimazole (Tapazole) 5 mg PO BID [facility] Last Admin: 10/31/18 08:21 Dose: 5 mg Nicotine (Nicoderm Cq) 1 patch TD DAILY [facility] Last Admin: 10/31/18 08:21 Dose: 1 patch Quetiapine Fumarate (Seroquel) 200 mg PO HS [facility]; Protocol Last Admin: 10/30/18 21:05 Dose: 200 mg Tramadol HCl (Ultram) 50 mg PO TID PRN PRN Reason: Pain, moderate (4-7) Last Admin: 10/31/18 10:10 Dose: 50 mg Trazodone HCl (Desyrel) 200 mg PO HS [facility] Last Admin: 10/30/18 21:05 Dose: 200 mg Physical Exam - Constitutional Appears: Non-toxic, No Acute Distress - Head Exam Head Exam: NORMAL INSPECTION - ENT Exam ENT Exam: Mucous Membranes Moist - Neck Exam Neck exam: Negative for: Meningismus - Respiratory Exam Respiratory Exam: Decreased Breath Sounds - Cardiovascular Exam Cardiovascular Exam: +S1, +S2 - GI/Abdominal Exam GI & Abdominal Exam: Soft. absent: Tenderness Results - Vital Signs Recent Vital Signs: Last Vital Signs Temp 98.2 F 10/31/18 07:11 Pulse 52 L 10/31/18 07:11 Resp 20 10/31/18 07:11 BP 117/67 10/31/18 07:11 Pulse Ox 100 10/27/18 23:18 - Labs Result Diagrams: 10/31/18 07:30 10/30/18 07:30 Labs: Laboratory Results - last 24 hr 10/31/18 10/31/18 07:30 07:30 WBC 3.0 L RBC 4.30 Hgb 12.8 Hct 37.7 MCV 87.7 MCH 29.8 MCHC 34.0 RDW 12.7 Plt Count 236 MPV 10.0 Free T4 1.19 Thyroxine (T4) 5.6 TSH 3rd Generation 0.39 L Assessment & Plan - Assessment and Plan (Free Text) Plan: Assessment chronic HIV infection has been on antiretroviral therapy for about 6 months now and diagnosed a year ago COPD heroin and polysubstance abuse Hepatitis C infection Plan continue Stribild (cART) will get CD4 count and HIV virus load advised and recommended to patient to reveal her HIV status to the sexual partner - explained the risks of lexx HIV despite practicing safe sex discussed with Dr. Adams
--- NOTE | 2018-10-31 15:13 | PN ---
DATE: 10/31/2018 SUBJECTIVE: I saw her in bed resting comfortably. She is feeling well. No complaint. She is eating. She is walking the mendoza. She participates taking the medications in good spirits. I added back her on HIV medication which we do not have here in the hospital. She is on Ativan, Catapres, Desyrel, DuoNebs, Lexapro, Maalox, milk of magnesia, Neurontin, Nicoderm, Seroquel, Tapazole, Tylenol, Ultram and Ventolin. Tapazole was added by the chief knowledge officer due to her low TSH. PHYSICAL EXAMINATION: VITAL SIGNS: She has 98.2 temp, 82 pulse, 117/67 blood pressure, 20 respiratory rate. HEAD: Atraumatic, normocephalic. LABORATORY DATA: She has a 3 white count better, 12.8 hemoglobin, 37.7 hematocrit, 236 platelets, 141 sodium, potassium 3.8. The last TSH is 0.39. I asked Dr. Fisher to see her with chief knowledge officer who started her on Tapazole and hopefully she will improve in the hyperparathyroid area. Continue aggressive treatment and care. Parag Luis DO
--- NOTE | 2018-10-31 15:17 | PCM.PYCHPN ---
Psychiatric Progress Note - Psychiatric Progress Note Patient seen today, length of contact: 30min Patient Chief Complaint: "I am little better" Problems Identified/Issues Discussed: Suicide/ homicide prevention, past psychiatric h/o, current psychiatric symptoms, medical problems, risk/benefits and alternatives of medications, medications compliance, coping strategies, substance abuse h/o, relapse prevention, importance of follow up with psychiatrist and therapist, discharge plan. Medical Problems: HIV, Hep C, see HPI Diagnostic Results: 10/29/18 07:30 10/29/18 07:30 Lab Results 10/29/18 07:30: TSH 3rd Generation 0.26 L 10/29/18 07:30: Sodium 138, Potassium 3.6, Chloride 107, Carbon Dioxide 26, Anion Gap 8 L, BUN 14, Creatinine 0.7, Est GFR ( Amer) > 60, Est GFR (Non-Af Amer) > 60, Random Glucose 86, Calcium 9.0, Total Bilirubin 0.4, AST 35, ALT 35, Alkaline Phosphatase 63, Total Protein 7.2, Albumin 3.7, Globulin 3.5, Albumin/Globulin Ratio 1.0 L 10/29/18 07:30: WBC 2.5 L D, RBC 3.99, Hgb 11.8 L, Hct 35.6 L, MCV 89.2, MCH 29.6, MCHC 33.1, RDW 13.0, Plt Count 224, MPV 10.0 10/28/18 08:00: RPR Nonreactive 10/28/18 08:00: TSH 3rd Generation 0.19 L 10/28/18 08:00: Fasting Glucose 85, Triglycerides 52, Cholesterol 161, LDL Cholesterol Direct 96, HDL Cholesterol 49 10/28/18 00:30: Urine Color Yellow, Urine Appearance Clear, Urine pH 7.0, Ur Specific Huntley 1.020, Urine Protein Trace H, Urine Glucose (UA) Negative, Urine Ketones Trace H, Urine Blood Negative, Urine Nitrate Negative, Urine Bilirubin Negative, Urine Urobilinogen 0.2, Ur Leukocyte Esterase Negative, Urine RBC 0 - 2, Urine WBC 1 - 3, Ur Epithelial Cells Many, Urine Bacteria Trace 10/28/18 00:30: Urine Opiates Screen Positive H, Urine Methadone Screen Negative, Ur Barbiturates Screen Negative, Ur Phencyclidine Scrn Negative, Ur Amphetamines Screen Negative, U Benzodiazepines Scrn Negative, U Oth Cocaine Metabols Positive H, U Cannabinoids Screen Negative 10/27/18 23:50: Beta HCG, Quant < 2.39 10/27/18 22:30: Alcohol, Quantitative < 10 10/27/18 22:30: WBC 5.3, RBC 3.96, Hgb 11.6 L, Hct 35.7 L, MCV 90.2 D, MCH 29.3, MCHC 32.5, RDW 12.9, Plt Count 231, MPV 10.4, Gran % 78.2 H, Lymph % (Auto) 13.0 L, Mcdonough % (Auto) 7.7 H, Eos % (Auto) 1.1 L, Baso % (Auto) 0.0, Gran # 4.15, Lymph # (Auto) 0.7 L, Mcdonough # (Auto) 0.4, Eos # (Auto) 0.1, Baso # (Auto) 0.00 10/27/18 22:30: Sodium 140, Potassium 4.4, Chloride 106, Carbon Dioxide 28, Anion Gap 10, BUN 13, Creatinine 0.8, Est GFR ( Amer) > 60, Est GFR (Non- Af Amer) > 60, Random Glucose 110, Calcium 9.0, Magnesium 1.7, Total Bilirubin 0.3, AST 35, ALT 42, Alkaline Phosphatase 66, Total Protein 7.4, Albumin 3.9, Globulin 3.5, Albumin/Globulin Ratio 1.1 10/27/18 22:30: Salicylates < 1 L, Acetaminophen < 10.0 L Vital Signs Temp Pulse Pulse Resp BP Pulse Ox 10/29/18 10:08 92 H 102/62 10/29/18 10:07 94 H 17 102/62 10/29/18 06:45 97.8 F 79 20 104/51 L 10/28/18 15:00 82 100/66 10/28/18 09:38 84 106/60 10/28/18 07:00 98.3 F 84 16 93/55 L 10/28/18 03:07 85 18 10/28/18 03:05 98.5 F 85 18 111/61 10/27/18 23:18 99 H 18 118/72 100 10/27/18 21:18 98.1 F 102 H 18 122/73 100 DSM 5 Symptoms Update: Pt is a single 42 year old female, with history of depression, anxiety, IV heroin and cocaine dependency, one prior admission at [facility] in 2017, compliant with trazdone 200 mg HS, Seroquel 200 mg HS, Lexapro 30 mg po daily and Neurontin 600 mg po bid prescribed by Dr. Millard in the [facility] who was BIB[facility] to [facility] s/p SA by overdosing on heroin after her boyfriend broke up with her and ordered her to move out of their home. ER clinician obtained collateral from patient's (ex)boyfriend who confirmed that he kicked patient out of their home because of her ongoing drug use. He left the apartment and told patient that he wanted her gone by the time he returned. When he arrived back to the apartment, he found patient lying on the floor unresponsive which led him to contact 911. Collateral stated that patient verbalized that she would harm herself in the past but never acted on it. She was seen and examined today at the day treatment area, hygiene is improving, patient has some future oriented goals, patient wants to go to inpatient rehab, patient and neonatal social worker working on this plan. Patient reported that her depression is "little bit better" no withdrawal symptoms, patient is able to tolerate food, patient is pleasant. Patient was seen by infectious disease specialist, patient was advised to review her status to her current sexual partner, viral load as well as CD4 CD8 will be collected, discussed with Dr. Thompson 10/31/2018. Patient denied any perceptual disturbances, patient denied hearing voices denied seeing things, denied paranoid ideation patient does not present to be psychotic. So far pt tolerates meds well, no side effects observed or reported, AIMS 0, no EPS. Impression: Major depressive disorder recurrent severe without psychosis Opioid use disorder severe Opioid withdrawal Cocaine use disorder severe Medication Change: Yes (tramadol as needed for pain) Medical Record Reviewed: Yes Consults ordered or reviewed: Medical consult was called Mental Status Examination - Cognitive Function Orientation: Person, Place, Situation Memory: Intact Attention: Poor Concentration: Poor Association: WNL Fund of Knowledge: WNL - Mood Mood: Depressed ("I feel a little bit better"), Anxious - Affect Affect: Constricted - Formal Thought Process Formal Thought Process: No Impairment - Suicidal Ideation Suicidal Ideation: No - Homicidal Ideation Homicidal Ideation: No Goal/Treatment Plan - Goal/Treatment Plan Need for Continued Stay: Remain at risks for inpatient hospitalization, Severe depression anxiety, Discharge may exacerbated symptoms, Severe functional impairment Progress Toward Problem(s) and Goals/Treatment Plan: group, milieu and supportive tx Continue outpatient medications prescribed by Dr. Millard in the HIV clinic Trazodone 200 mg HS, for depression, insomnia Seroquel 200 mg HS, for mood stabilization Lexapro 30 mg po daily, for depression and anxiety Neurontin 600 mg po bid, off label for withdrawals tramadol as needed for pain Ativan 0.5 mg po TID for anxiety associated with opiate withdrawal as well as clonidine 0.1 mg po q12 prn Consider naltrexone to help with abstinence if patient is motivated Nicotine 14 mg patch daily for nicotine cravings pt was seen by Dr. Luis pt was seen by Dr.Sison GALLEGOS consultation for discharge plan and social issues, possible inpatient rehab family involvement Estimated Date of D/C: 11/02/18
--- NOTE | 2018-10-31 19:44 | PN ---
DATE: 10/31/2018 ENDO FOLLOWUP NOTE LOCATION: Room 518, psychiatry. SUBJECTIVE: This is a 42-year-old female with major depressive disorder, presenting here with suicidal ideations and marked generalized anxiety and is now undergoing closer psychiatric evaluation and management and is being followed closely also now for metabolic management. LABORATORY DATA: Her latest thyroid study showed a T4 of 5.6 with a free T4 of 0.19 and a TSH of 0.39. Her latest chemistry showed BUN of 12, sodium 141, potassium 3.8, chloride 110, CO2 of 26, glucose 91 and creatinine 0.7. ASSESSMENT AND PLAN: This is a 42-year-old female with subclinical hyperthyroidism, most likely related to underlying autoimmune thyroiditis with a superimposed acute sick euthyroid syndrome was noted. She also has major depressive disorder, presenting here with suicidal ideations and currently undergoing closer psychiatric evaluation and management. Plan of management, we will continue the low-dose medical therapy given as Tapazole at 5 mg b.i.d. after meals as ordered. We will obtain serial chemistries and supplement accordingly needed. We will also await the results of the thyroid antibodies, which will confirm and/or indicate the presence of underlying thyroid autoimmunity. We will follow. Eugenie Fisher MD
[2018-11-01] MEDS ORDERED: STRIBILD PO SCH ×2 (08:00)
[2018-11-01] MEDS: methIMAzole 5 MG TAB PO SCH ×2 (09:05→16:06)
[2018-11-01] MEDS: STRIBILD PO SCH (09:05)
[2018-11-01] MEDS: Albuterol HFA 90 mcg/actuation (8 g) IH PRN ×2 (09:09→21:52)
--- NOTE | 2018-11-01 12:20 | PN ---
DATE: 11/01/2018 SUBJECTIVE: I saw her resting comfortably in bed in the psychiatric floor. She slept well. She is feeling well. She is doing better. She is participating. She is taking her medications well. She is on Ativan, Catapres, Desyrel, DuoNebs, Lexapro, Maalox, milk of magnesia, Neurontin, Nicoderm, Seroquel, Tapazole, Tylenol, Ultram, and Ventolin. Overall, she is improving. PHYSICAL EXAMINATION: VITAL SIGNS: She has 98.1 temperature, 66 pulse, 102/64 blood pressure, 20 respiratory rate. LABORATORY DATA: She had a lab test on 10/31/2018. She did well. Last TSH was 0.[address]. ASSESSMENT AND PLAN: She was seen by Infectious Disease and Endocrinology. She has chronic human immunodeficiency virus, hyperthyroid, depression, she has substance abuse, hepatitis C. She is back on human immunodeficiency virus medications as per Infectious Disease. Still on Tapazole for hyperthyroidism and we will continue to watch closely. Parag Luis DO
--- NOTE | 2018-11-01 13:41 | CP.PCM.PN ---
Subjective - Date & Time of Evaluation Date of Evaluation: 11/01/18 Time of Evaluation: 08:40 - Subjective Subjective: No fevers, not in distress. Objective - Vital Signs/Intake and Output Vital Signs (last 24 hours): Temp Pulse Resp BP Pulse Ox 98.2 F 52 L 20 117/67 100 10/31/18 07:11 10/31/18 07:11 10/31/18 07:11 10/31/18 07:11 10/27/18 23:18 - Medications Medications: Current Medications Acetaminophen (Tylenol 325mg Tab) 650 mg PO Q6H PRN PRN Reason: Pain, moderate (4-7) Al Hydrox/Mg Hydrox/Simethicone (Maalox Plus 30 Ml) 30 ml PO DAILY PRN PRN Reason: Indigestion / Heartburn Albuterol (Ventolin Hfa 90 Mcg/Actuation (8 G)) 2 puff IH [id number] PRN PRN Reason: Shortness of Breath Last Admin: 10/31/18 08:20 Dose: 2 puff Albuterol/Ipratropium (Duoneb 3 Mg/0.5 Mg (3 Ml) Ud) 3 ml IH [id number] PRN PRN Reason: Shortness of Breath Clonidine HCl (Catapres) 0.1 mg PO Q12 PRN PRN Reason: withdrawal Last Admin: 10/31/18 08:22 Dose: 0.1 mg Escitalopram Oxalate (Lexapro) 30 mg PO DAILY [facility] Last Admin: 10/31/18 08:21 Dose: 30 mg Gabapentin (Neurontin) 600 mg PO AMHS [facility]; Protocol Last Admin: 10/31/18 09:03 Dose: 600 mg Home Med (Home Med) 1 unit PO DAILY [facility]Y Last Admin: 10/31/18 09:03 Dose: 1 unit Lorazepam (Ativan) 0.5 mg PO BID [facility]Y; Protocol Last Admin: 10/31/18 08:21 Dose: 0.5 mg Lorazepam (Ativan) 0.5 mg PO HS [facility]Y; Protocol Last Admin: 10/30/18 21:04 Dose: 0.5 mg Magnesium Hydroxide (Milk Of Magnesia) 30 ml PO DAILY PRN PRN Reason: Constipation Methimazole (Tapazole) 5 mg PO BID [facility] Last Admin: 10/31/18 08:21 Dose: 5 mg Nicotine (Nicoderm Cq) 1 patch TD DAILY [facility] Last Admin: 10/31/18 08:21 Dose: 1 patch Quetiapine Fumarate (Seroquel) 200 mg PO HS [facility]; Protocol Last Admin: 10/30/18 21:05 Dose: 200 mg Tramadol HCl (Ultram) 50 mg PO TID PRN PRN Reason: Pain, moderate (4-7) Last Admin: 10/31/18 10:10 Dose: 50 mg Trazodone HCl (Desyrel) 200 mg PO HS [facility] Last Admin: 10/30/18 21:05 Dose: 200 mg - Labs Labs: 10/31/18 07:30 10/30/18 07:30 - Constitutional Appears: Chronically Ill - Head Exam Head Exam: NORMAL INSPECTION - Respiratory Exam Respiratory Exam: Decreased Breath Sounds - Cardiovascular Exam Cardiovascular Exam: +S1, +S2 - GI/Abdominal Exam GI & Abdominal Exam: Soft. absent: Tenderness Assessment and Plan - Assessment and Plan (Free Text) Plan: Assessment chronic HIV infection has been on antiretroviral therapy for about 6 months now and diagnosed a year ago COPD heroin and polysubstance abuse Hepatitis C infection Plan continue Stribild (cART) will get CD4 count and HIV virus load advised and recommended to patient to reveal her HIV status to the sexual partner - explained the risks of lexx HIV despite practicing safe sex discussed with Dr. Adams previously
--- NOTE | 2018-11-01 15:10 | PCM.PYCHPN ---
Psychiatric Progress Note - Psychiatric Progress Note Patient seen today, length of contact: 30min Patient Chief Complaint: "I feel better" Problems Identified/Issues Discussed: Suicide/ homicide prevention, past psychiatric h/o, current psychiatric symptoms, medical problems, risk/benefits and alternatives of medications, medications compliance, coping strategies, substance abuse h/o, relapse prevention, importance of follow up with psychiatrist and therapist, discharge plan. Medical Problems: HIV, Hep C, see HPI Diagnostic Results: 10/29/18 07:30 10/29/18 07:30 Lab Results 10/29/18 07:30: TSH 3rd Generation 0.26 L 10/29/18 07:30: Sodium 138, Potassium 3.6, Chloride 107, Carbon Dioxide 26, An ion Gap 8 L, BUN 14, Creatinine 0.7, Est GFR ( Amer) > 60, Est GFR (Non- Af Amer) > 60, Random Glucose 86, Calcium 9.0, Total Bilirubin 0.4, AST 35, ALT 35, Alkaline Phosphatase 63, Total Protein 7.2, Albumin 3.7, Globulin 3.5, Albumin/Globulin Ratio 1.0 L 10/29/18 07:30: WBC 2.5 L D, RBC 3.99, Hgb 11.8 L, Hct 35.6 L, MCV 89.2, MCH 29.6, MCHC 33.1, RDW 13.0, Plt Count 224, MPV 10.0 10/28/18 08:00: RPR Nonreactive 10/28/18 08:00: TSH 3rd Generation 0.19 L 10/28/18 08:00: Fasting Glucose 85, Triglycerides 52, Cholesterol 161, LDL Cholesterol Direct 96, HDL Cholesterol 49 10/28/18 00:30: Urine Color Yellow, Urine Appearance Clear, Urine pH 7.0, Ur Specific [place] 1.020, Urine Protein Trace H, Urine Glucose (UA) Negative, Urine Ketones Trace H, Urine Blood Negative, Urine Nitrate Negative, Urine Bilirubin Negative, Urine Urobilinogen 0.2, Ur Leukocyte Esterase Negative, Ur ine RBC 0 - 2, Urine WBC 1 - 3, Ur Epithelial Cells Many, Urine Bacteria Trace 10/28/18 00:30: Urine Opiates Screen Positive H, Urine Methadone Screen Negative, Ur Barbiturates Screen Negative, Ur Phencyclidine Scrn Negative, Ur Amphetamines Screen Negative, U Benzodiazepines Scrn Negative, U Oth Cocaine Metabols Positive H, U Cannabinoids Screen Negative 10/27/18 23:50: Beta HCG, Quant < 2.39 10/27/18 22:30: Alcohol, Quantitative < 10 10/27/18 22:30: WBC 5.3, RBC 3.96, Hgb 11.6 L, Hct 35.7 L, MCV 90.2 D, MCH 29.3, MCHC 32.5, RDW 12.9, Plt Count 231, MPV 10.4, Gran % 78.2 H, Lymph % (Auto) 13.0 L, [place] % (Auto) 7.7 H, Eos % (Auto) 1.1 L, Baso % (Auto) 0.0, Gran # 4.15, Lymph # (Auto) 0.7 L, [place] # (Auto) 0.4, Eos # (Auto) 0.1, Baso # (Auto) 0.00 10/27/18 22:30: Sodium 140, Potassium 4.4, Chloride 106, Carbon Dioxide 28, Anion Gap 10, BUN 13, Creatinine 0.8, Est GFR ( Amer) > 60, Est GFR (Non- Af Amer) > 60, Random Glucose 110, Calcium 9.0, Magnesium 1.7, Total Bilirubin 0.3, AST 35, ALT 42, Alkaline Phosphatase 66, Total Protein 7.4, Albumin 3.9, Globulin 3.5, Albumin/Globulin Ratio 1.1 10/27/18 22:30: Salicylates < 1 L, Acetaminophen < 10.0 L Vital Signs Temp Pulse Pulse Resp BP Pulse Ox 10/29/18 10:08 92 H 102/62 10/29/18 10:07 94 H 17 102/62 10/29/18 06:45 97.8 F 79 20 104/51 L 10/28/18 15:00 82 100/66 10/28/18 09:38 84 106/60 10/28/18 07:00 98.3 F 84 16 93/55 L 10/28/18 03:07 85 18 10/28/18 03:05 98.5 F 85 18 111/61 10/27/18 23:18 99 H 18 118/72 100 10/27/18 21:18 98.1 F 102 H 18 122/73 100 DSM 5 Symptoms Update: Pt is a single 42 year old female, with history of depression, anxiety, IV heroin and cocaine dependency, one prior admission at [facility] in 2017, compliant with trazdone 200 mg HS, Seroquel 200 mg HS, Lexapro 30 mg po daily and Neurontin 600 mg po bid prescribed by Dr. Millard in the [facility] [place] [facility] who was BIBA to [facility] s/p SA by overdosing on heroin after her boyfriend broke up with her and ordered her to move out of their home. ER clinician obtained collateral from patient's (ex)boyfriend who confirmed that he kicked patient out of their home because of her ongoing drug use. He left the apartment and told patient that he wanted her gone by the time he returned. When he arrived back to the apartment, he found patient lying on the floor unresponsive which led him to contact 911. Collateral stated that patient verbalized that she would harm herself in the past but never acted on it. She was seen and examined today at the day treatment area, hygiene is improving, patient has some future oriented goals, patient wants to go to inpatient rehab, patient and social insurance adviser working on this plan. Patient reported that her depression is "little bit better" no withdrawal symptoms, patient is able to tolerate food, patient is pleasant. Patient was seen by infectious disease specialist, patient was advised to review her status to her current sexual partner, viral load as well as CD4 CD8 will be collected, discussed with Dr. Thompson 10/31/2018. Patient denied any perceptual disturbances, patient denied hearing voices denied seeing things, denied paranoid ideation patient does not present to be psychotic. So far pt tolerates meds well, no side effects observed or reported, AIMS 0, no EPS. Impression: Major depressive disorder recurrent severe without psychosis Opioid use disorder severe Opioid withdrawal Cocaine use disorder severe Medication Change: No Medical Record Reviewed: Yes Consults ordered or reviewed: Medical consult was called Mental Status Examination - Cognitive Function Orientation: Person, Place, Situation Memory: Intact Attention: Poor (Some improvement) Concentration: Poor (Some improvement) Association: WNL Fund of Knowledge: WNL - Mood Mood: Depressed ("I am happy to be alive"), Anxious - Affect Affect: Constricted (But more reactive and mood congruent) - Formal Thought Process Formal Thought Process: No Impairment - Suicidal Ideation Suicidal Ideation: No - Homicidal Ideation Homicidal Ideation: No Goal/Treatment Plan - Goal/Treatment Plan Need for Continued Stay: Remain at risks for inpatient hospitalization, Severe depression anxiety, Discharge may exacerbated symptoms, Severe functional impairment Progress Toward Problem(s) and Goals/Treatment Plan: group, milieu and supportive tx Continue outpatient medications prescribed by Dr. Millard in the HIV clinic Trazodone 200 mg HS, for depression, insomnia Seroquel 200 mg HS, for mood stabilization Lexapro 30 mg po daily, for depression and anxiety Neurontin 600 mg po bid, off label for withdrawals tramadol as needed for pain Ativan 0.5 mg po TID for anxiety associated with opiate withdrawal as well as clonidine 0.1 mg po q12 prn Consider naltrexone to help with abstinence if patient is motivated Nicotine 14 mg patch daily for nicotine cravings pt was seen by Dr. Luis pt was seen by Dr.Sison GALLEGOS consultation for discharge plan and social issues, possible inpatient rehab family involvement Estimated Date of D/C: 11/02/18
--- NOTE | 2018-11-01 20:32 | PN ---
DATE: 11/01/2018 LOCATION: Room 518, Psychiatry. SUBJECTIVE: This is a 42-year-old female with recent major depressive disorder and suicidal ideations, currently undergoing closer psychiatric evaluation and management and is also being followed closely for metabolic management for recent hyperthyroidism as noted thereof. LABORATORY DATA: Her latest chemistry showed a BUN of 12, sodium 141, potassium 3.8, chloride 110, CO2 of 26, glucose 91 and creatinine 0.7. Her latest thyroid study showed a T4 of 5.6 with a TSH of 0.39 and a free T4 of 1.19. ASSESSMENT: This is a 42-year-old female with subclinical hyperthyroidism, most likely related to underlying autoimmune thyroiditis as noted. PLAN OF MANAGEMENT: We will continue the low-dose medical therapy using Tapazole at 5 mg b.i.d. after meals as ordered. We will obtain serial chemistries and supplement accordingly as needed. We will await the thyroid antibodies which will confirm and/or indicate the presence of underlying thyroid autoimmunity. We will follow. Eugenie Fisher MD
[2018-11-02 06:42] VITALS: BP 106/68; PULSE 69; RESP 16; TEMP 98.5
[2018-11-02] MEDS: methIMAzole 5 MG TAB PO SCH (08:19)
[2018-11-02] MEDS: Albuterol HFA 90 mcg/actuation (8 g) IH PRN (08:20)
[2018-11-02] MEDS: STRIBILD PO SCH (08:20)
--- NOTE | 2018-11-02 14:52 | PN ---
DATE: 11/02/2018 SUBJECTIVE: She is feeling well, doing well, eating well, participating, taking her medications, on Ativan, Catapres, Desyrel, DuoNebs, Lexapro, Maalox, milk of magnesia, Neurontin, NicoDerm, Seroquel, Tapazole, Tylenol, Ultram, and Ventolin. ASSESSMENT AND PLAN: She had a few things going on while she was here and we actually found hyperthyroidism on her. I called in Endocrinology and we got her on Tapazole, hoping she will do well. She was seen by Psychiatry. I think she is supposed to be discharged today, hopefully she will. I discussed no more cocaine and drugs or things like that. Hopefully, she will follow and is to follow up with her doctor as an outpatient. Parag Luis DO
--- NOTE | 2018-11-02 15:14 | CP.PCM.PN ---
Subjective - Date & Time of Evaluation Date of Evaluation: 11/02/18 Time of Evaluation: 09:05 - Subjective Subjective: Comfortable, no fevers, not in distress. Objective - Vital Signs/Intake and Output Vital Signs (last 24 hours): Temp Pulse Resp BP Pulse Ox 98.1 F 66 20 102/64 100 11/01/18 06:47 11/01/18 06:47 11/01/18 06:47 11/01/18 06:47 10/27/18 23:18 - Medications Medications: Current Medications Acetaminophen (Tylenol 325mg Tab) 650 mg PO Q6H PRN PRN Reason: Pain, moderate (4-7) Al Hydrox/Mg Hydrox/Simethicone (Maalox Plus 30 Ml) 30 ml PO DAILY PRN PRN Reason: Indigestion / Heartburn Albuterol (Ventolin Hfa 90 Mcg/Actuation (8 G)) 2 puff IH [id number] PRN PRN Reason: Shortness of Breath Last Admin: 11/01/18 09:09 Dose: 2 puff Albuterol/Ipratropium (Duoneb 3 Mg/0.5 Mg (3 Ml) Ud) 3 ml IH [id number] PRN PRN Reason: Shortness of Breath Clonidine HCl (Catapres) 0.1 mg PO Q12 PRN PRN Reason: withdrawal Last Admin: 10/31/18 08:22 Dose: 0.1 mg Escitalopram Oxalate (Lexapro) 30 mg PO DAILY [facility] Last Admin: 11/01/18 09:05 Dose: 30 mg Gabapentin (Neurontin) 600 mg PO AMHS [facility]; Protocol Last Admin: 11/01/18 09:25 Dose: 600 mg Home Med (Home Med) 1 unit PO DAILY [facility] Last Admin: 11/01/18 09:05 Dose: 1 unit Lorazepam (Ativan) 0.5 mg PO BID [facility]; Protocol Last Admin: 11/01/18 09:05 Dose: 0.5 mg Lorazepam (Ativan) 0.5 mg PO HS [facility]; Protocol Last Admin: 10/31/18 21:03 Dose: 0.5 mg Magnesium Hydroxide (Milk Of Magnesia) 30 ml PO DAILY PRN PRN Reason: Constipation Methimazole (Tapazole) 5 mg PO BID [facility] Last Admin: 11/01/18 09:05 Dose: 5 mg Nicotine (Nicoderm Cq) 1 patch TD DAILY [facility] Last Admin: 11/01/18 09:05 Dose: 1 patch Quetiapine Fumarate (Seroquel) 200 mg PO HS [facility]; Protocol Last Admin: 10/31/18 21:04 Dose: 200 mg Tramadol HCl (Ultram) 50 mg PO TID PRN PRN Reason: Pain, moderate (4-7) Last Admin: 11/01/18 09:28 Dose: 50 mg Trazodone HCl (Desyrel) 200 mg PO HS [facility] Last Admin: 10/31/18 21:04 Dose: 200 mg - Labs Labs: 10/31/18 07:30 10/30/18 07:30 - Constitutional Appears: Chronically Ill - Head Exam Head Exam: NORMAL INSPECTION - Respiratory Exam Respiratory Exam: Decreased Breath Sounds - Cardiovascular Exam Cardiovascular Exam: +S1, +S2 - GI/Abdominal Exam GI & Abdominal Exam: Soft. absent: Tenderness Assessment and Plan - Assessment and Plan (Free Text) Plan: Assessment chronic HIV infection has been on antiretroviral therapy for about 6 months now and diagnosed a year ago COPD heroin and polysubstance abuse Hepatitis C infection Plan continue Stribild (cART) follow up CD4 count and HIV virus load advised and recommended to patient to reveal her HIV status to the sexual partner - explained the risks of lexx HIV despite practicing safe sex discussed with Dr. Adams previously
--- NOTE | 2018-11-02 16:18 | PCM.PYCHDC ---
Mental Status Examination - Mental Status Examination Orientation: Person, Place, Situation, Time Memory: Intact Mood: Neutral Affect: Broad (Mood congruent) Speech: Appropriate Attention: WNL Concentration: WNL Association: WNL Fund of Knowledge: WNL Formal Thought Process: No Impairment Description of patient's judgement and insight: Pt has improved insight into mental and medical illness, pt was compliant with medications and unit rules and regulations, pt was going to groups, was calm, cooperative, socially appropriate, no behavioral incidents, no agitation, no aggression. Psychotic Thoughts and Behaviors: Pt denied v/a/t hallucinations, denied paranoid ideations, pt does not appear to be psychotic, and thought process is goal directed. Suicidal Ideation: No Current Homicidal Ideation?: No Plan: pt adamantly denied thoughts of harming self or others denied intent or plan. Discharge Summary - Discharge Note Reason for Hospitalization: Patient was admitted status post suicidal attempt on drugs, please see admission note for more detailed information Psychiatric History (includes Medical, Family, Personal Hx): History of substance abuse, mood spectrum disorder and anxiety spectrum dis Laboratory Data: Abnormal Lab Results 10/31/18 07:00 Thyroperoxidase Ab 2 Consultations:: List each consultation separately and include: 1. Reason for request. 2. Findings. 3. Follow-up Consultations: Medical consult was called Infectious disease consult was also called Summary of Hospital Course include:: 1. Description of specific treatment plan utilized for patients during their course of treatmen. 2. Summarize the time- course for resolution of acute symptoms and/or regressed behaviors. 3. Describe issues identified and worked on during hospitalization. 4. Describe medication utilized. 5. Describe medical problems identified and treated. 6. Reassessment of suicide risk Summary of Hospital Course: As per Dr. Hicks's assessment: Pt is a single 42 year old female, with history of depression, anxiety, IV heroin and cocaine dependency, one prior admission at [facility] in 2017, compliant with trazdone 200 mg HS, Seroquel 200 mg HS, Lexapro 30 mg po daily and Neurontin 600 mg po bid prescribed by Dr. Millard in the [facility] [place] [facility] who was BIBA to [facility] s/p SA by overdosing on heroin after her boyfriend broke up with her and ordered her to move out of their home. ER clinician obtained collateral from patient's (ex)boyfriend who confirmed that he kicked patient out of their home because of her ongoing drug use. He left the apartment and told patient that he wanted her gone by the time he returned. When he arrived back to the apartment, he found patient lying on the floor unresponsive which led him to contact 911. Collateral stated that patient verbalized that she would harm herself in the past but never acted on it. Please see admission note for more detailed information. Patient was stabilized on the following set of the medications: Trazodone 200 mg HS, for depression, insomnia Seroquel 200 mg HS, for mood stabilization Lexapro 30 mg po daily, for depression and anxiety Neurontin 600 mg po bid, off label for withdrawals tramadol as needed for pain Ativan 0.5 mg po TID for anxiety associated with opiate withdrawal as well as clonidine 0.1 mg po q12 prn naltrexone option was discussed with the patient but at present moment patient is at high risk of relapse and will not give that medication to the patient Nicotine 14 mg patch daily for nicotine cravings pt was seen by Dr. Luis pt was seen by Patient tolerated medications well, no side effects observed or reported, aims 0, no EPS. Overall patient improved significantly, patient was attending groups, withdrawal symptoms are much better, patient was seen by infectious disease as well as medical team, please see notes for more detailed information. Over the course of this hospitalization pt was attending groups, pt also had medication management, had therapeutic milieu. Overall pt improved significantly, pt's affect became brighter, pt was less depressed, has realistic future oriented plans, pt also does not appear to be psychotic, or anxious, pt was socially appropriate, no behavioral issues, patient seems to be genuinely regretful for her suicidal act, has better coping strategies right now "if I would feel suicidal again, I will call my , if he is not available I will call 911, or I will bring myself back to the hospital". pts insight improved as well and soon pt deemed to be ready for discharge. At the time of the discharge pt denied been depressed, denied thoughts of harming self or others, denied psychotic symptoms, and pt does not appeared to be psychotic, denied been anxious, pt is not in imminent danger to self or others, pt was referred to dual diagnosis program at the [facility], information about follow up appointment, time and address provided to the pt, it is patient responsibility to follow up with outpatient clinic, PMD as well as specialists (see note for more detailed information). In case pt will need to obtain results of studies pending at discharge pt was provided with contact information of Psychiatric Inpatient unit [phone] as well as Medical Record Department [phone]. Naltrexone treatment not indicated at this time. Counseling about smoking and alcohol cessation provided AA meetings as well as smoking cessation treatment program information was provided by the Patient is on waiting list for inpatient rehab, was advised to keep calling and following up on bed availability pt was provided with prescriptions for all of medications (please see medication reconciliation form) Pt was educated about safety plan in case of worsening of symptoms or in case of suicidal or homicidal ideation call 911 or go to the nearest ER, also was educated to take meds as prescribed and stay away from drugs, pt verbalized understanding. - Diagnosis (1) Current severe episode of major depressive disorder without psychotic features without prior episode Status: Chronic Priority: High (2) Drug abuse Status: Chronic Priority: High - Final Diagnosis (DSM 5) Condition upon Discharge: IMPROVED Disposition: HOME/ ROUTINE Follow-up Treatment Plan: At the time of the discharge pt denied been depressed, denied thoughts of harming self or others, denied psychotic symptoms, and pt does not appeared to be psychotic, denied been anxious, pt is not in imminent danger to self or others, pt was referred to dual diagnosis program at the [facility], information about follow up appointment, time and address provided to the pt, it is patient responsibility to follow up with outpatient clinic, PMD as well as specialists (see note for more detailed information). In case pt will need to obtain results of studies pending at discharge pt was provided with contact information of Psychiatric Inpatient unit [phone] as well as Medical Record Department [phone]. Naltrexone treatment not indicated at this time. Counseling about smoking and alcohol cessation provided AA meetings as well as smoking cessation treatment program information was provided by the Patient is on waiting list for inpatient rehab, was advised to keep calling and following up on bed availability pt was provided with prescriptions for all of medications (please see medication reconciliation form) Pt was educated about safety plan in case of worsening of symptoms or in case of suicidal or homicidal ideation call 911 or go to the nearest ER, also was educated to take meds as prescribed and stay away from drugs, pt verbalized understanding. Prescriptions/Medication Reconciliation: Albuterol HFA [Ventolin HFA 90 mcg/actuation (8 g)] 2 puff IH [id number] #1 inhaler Escitalopram [Lexapro] 30 mg PO DAILY #45 tab Gabapentin [Neurontin] 600 mg PO AMHS #30 tab methIMAzole [Tapazole] 5 mg PO BID #14 tab Nicotine 14 mg/24 hr [Nicoderm CQ] 1 patch TD DAILY #14 patch QUEtiapine [SEROquel] 200 mg PO HS #14 tab traZODone [Desyrel] 200 mg PO HS #30 tab - Smoking Cessation Smoking Cessation Medication prescribed: Yes - Antipsychotic Medications Pt discharged on 2 or more routine antipsychotic medications: No
--- NOTE | 2018-11-02 19:50 | PN ---
DATE: 11/02/2018 ENDO FOLLOW UP NOTE LOCATION: Room 518, Psychiatry. SUBJECTIVE: This is a 42-year-old female with subclinical hyperthyroidism admitted here for closer psychiatric evaluation and management because of recent suicidal ideations with underlying major depressive disorder. She remains clinically euthyroid at this time. Her latest chemistries showed a BUN of 12, sodium 141, potassium 3.8, chloride 110, CO2 26, glucose 91 and creatinine 0.7. Her repeat thyroid study showed a T4 or thyroxine level of 5.6 with a TSH of 0.39 and a free T4 of 1.19. ASSESSMENT AND PLAN: So at this time, we will continue the low-dose medical therapy given as Tapazole at 5 mg b.i.d. after meals as ordered. We will obtain serial chemistries and supplement accordingly as needed. We will also obtain serial thyroid studies and titrate her dose regimen accordingly. We will follow. Eugenie Fisher MD
[2018-11-03 16:29] LABS: % CD4 (T HELPER CELL) 34 Percent (30-61); % CD8 (SUPPRESSOR T CELL) 35 Percent (12-42); ABSOLUTE CD4 CELLS 388 Cells/mcL (490-1740); ABSOLUTE CD8 CELLS 406 Cells/mcL (180-1170); ABSOLUTE LYMPHOCYTES 1150 Cells/mcL (850-3900); HELPER/SUPPRESSOR RATIO 0.96 Ratio (0.86-5.00)
[2018-11-05 14:59] LABS: TSI 129 % baseline (<140)
== END 2018-11-02 15:58 | disposition home or self-care (01) | DRG 430 ==
LOC: ED 21:17 → OBSVTOIN 10-28 01:10 → ERH 10-28 01:10 → PSYC 10-28 02:28
PROVIDERS: ADMIT Psychiatry & Neurology Psychiatry; ATTEND Psychiatry & Neurology Psychiatry
DX: F33.2 Major depressive disorder, recurrent severe without psychotic features (principal); F11.23 Opioid dependence with withdrawal; F14.20 Cocaine dependence, uncomplicated; J44.9 Chronic obstructive pulmonary disease, unspecified; E05.90 Thyrotoxicosis, unspecified without thyrotoxic crisis or storm; B19.20 Unspecified viral hepatitis C without hepatic coma; Z21 Asymptomatic human immunodeficiency virus [HIV] infection status; F43.23 Adjustment disorder with mixed anxiety and depressed mood; F41.1 Generalized anxiety disorder; R45.851 Suicidal ideations; F17.210 Nicotine dependence, cigarettes, uncomplicated; I10 Essential (primary) hypertension; E06.3 Autoimmune thyroiditis; E07.81 Sick-euthyroid syndrome; Z88.0 Allergy status to penicillin; Z59.0 Homelessness